=== PATIENT | female | born 1965 | race American Indian/Alaskan Native ===

== ENCOUNTER 2018-06-15 12:28 | Outpatient (CLI) | payer MEDICAID | END 2018-06-15 12:29 | disposition home or self-care (01) | LOC: C.MRIC 12:28 ==

== ENCOUNTER 2018-06-16 13:12 | Inpatient (IN) | payer MEDICAID ==
[2018-06-16 13:12] VITALS: BMI 29.7
[2018-06-16] MEDS ORDERED: Vancomycin 1 GM 1 GM/250 ML BAG IV STA (13:45)
[2018-06-16] MEDS ORDERED: Piperacillin/Tazobact 3.375 gm 100 ML IV STA (13:45)
--- NOTE | 2018-06-16 13:56 | C.PDOC ---
History Of Present Illness 31 year old female presents to ED with complaint of painful ulcer between the 4th and 5th toes of her left foot for a year, that has recently worsened. She has PMHX of DM, depression. Her superintendent production is Dr. Haylie Crews, she was seen by him this morning and sent to ED. Osteomyelitis is suspected. Patient has not had a CTA done or arterial droopler done yet. (+) history of smoking, smokes 1 pack per day. Patient states that movement worsens the pain. She denies pain radiating up the ankle, sensory changes, fever, extremity weakness, rashes. Time Seen by Provider: 06/16/18 13:23 Chief Complaint (Nursing): Lower Extremity Problem/Injury History Per: Patient History/Exam Limitations: no limitations Onset/Duration Of Symptoms: Days Current Symptoms Are (Timing): Still Present Additional History Per: Patient Past Medical History Reviewed: Historical Data, Nursing Documentation, Vital Signs Vital Signs: Last Vital Signs Temp 98.5 F 06/16/18 13:17 Pulse 107 H 06/16/18 13:17 Resp 18 06/16/18 13:17 BP 155/84 H 06/16/18 13:17 Pulse Ox 95 06/16/18 13:17 - Medical History PMH: Depression, Diabetes Surgical History: No Surg Hx Family History: States: Diabetes - Social History Hx Tobacco Use: Yes Hx Alcohol Use: No Hx Substance Use: No - Immunization History Hx Tetanus Toxoid Vaccination: No Hx Influenza Vaccination: Yes Hx Pneumococcal Vaccination: No Review Of Systems Constitutional: Negative for: Fever, Chills, Weakness Cardiovascular: Negative for: Chest Pain, Palpitations Respiratory: Negative for: Cough, Shortness of Breath Gastrointestinal: Negative for: Nausea, Vomiting, Abdominal Pain, Diarrhea Musculoskeletal: Positive for: Foot Pain (Ulcer between the 4th and 5th digits of the left foot) Skin: Positive for: Other (Ulcer on the left foot) Neurological: Negative for: Weakness, Numbness, Dizziness Physical Exam - Physical Exam Appears: Well, Non-toxic, No Acute Distress Skin: Normal Color, Warm, Dry Head: Normacephalic Oral Mucosa: Moist Neck: Supple Cardiovascular: Rhythm Regular Respiratory: Normal Breath Sounds, No Rales, No Rhonchi, No Wheezing Gastrointestinal/Abdominal: Normal Exam, Bowel Sounds, Soft, No Tenderness Extremity: Capillary Refill (< 2 sec all digits ), Other (deep appearing ulcer between the 4th and 5th digits of the left foot; (+) skin breakdown on the left foot) Extremity: Right: Atraumatic, Normal Color And Temperature Pulses: Left Dorsalis Pedis: Normal, Right Dorsalis Pedis: Normal Neurological/Psych: Oriented x3 Gait: Steady ED Course And Treatment - Laboratory Results Result Diagrams: 06/23/18 07:15 06/23/18 07:15 O2 Sat by Pulse Oximetry: 95 (RA) Pulse Ox Interpretation: Normal Progress Note: Blood work, UA ordered and reviewed. Patient given IV Vancomycin, IV Zosyn and PO Percocet. . 14:03- called [facility] and spoke with Nurse Rachelle to confirm methadone dose for patient. Phone number [phone]. No call back yet. - Physician Consult Information Physician Contacted: Obie Shi Outcome Of Conversation: Discussed patient with PMD, agrees with admission for osteomyelitis of left foot. Disposition - Disposition Disposition: HOSPITALIZED Disposition Time: 15:13 Condition: STABLE - Clinical Impression Clinical Impression: Osteomyelitis of left foot - Scribe Statement The provider has reviewed the documentation as recorded by the Scribe (Maite Gagnon) All medical record entries made by the Scribe were at my direction and personally dictated by me. I have reviewed the chart and agree that the record accurately reflects my personal performance of the history, physical exam, medical decision making, and the department course for this patient. I have also personally directed, reviewed, and agree with the discharge instructions and disposition. Decision To Admit - Pt Status Changed To: Hospital Disposition Of: Inpatient - Admit Certification Admit to Inpatient:: After my assessment, the patient will require hospitalization for at least two midnights. This is because of the severity of symptoms shown, intensity of services needed, and/or the medical risk in this patient being treated as an outpatient. - InPatient: Physician Admission Certification: I certify that this patient requires 2 or more midnights of care for the following reason:: see notes - . Bed Request Type: Regular Admitting Physician: Obie Shi Patient Diagnosis: Osteomyelitis of left foot
[2018-06-16 13:59] LABS: VENOUS BLOOD GAS BASE EXCESS 2.3 mmol/L (0.0-2.0); VENOUS BLOOD GAS PCO2 56 mmHg (40-60); VENOUS BLOOD GAS PO2 16 mm/Hg (30-55); VENOUS BLOOD PH 7.33 (7.32-7.43)
[2018-06-16] MEDS ORDERED: Oxycodone/Acetaminophen 5/325 mg Tab PO STA (14:01)
[2018-06-16 14:04] LABS: BASO # 0.1 K/uL (0.0-0.2); BASO % 1.1 % (0.0-2.0); EOS # 0.1 K/uL (0.0-0.7); EOS % 0.9 % (0.0-4.0); HEMOGLOBIN 13.2 g/dL (11.0-16.0); LYMPH # 3.5 K/uL (1.0-4.3); LYMPH % 35.2 % (20.0-40.0); MEAN CELL VOLUME 93.3 fL (81.0-99.0); MEAN CORPUSCULAR HEMOGLOBIN 31.7 pg (27.0-31.0); MONO # 0.5 K/uL (0.0-0.8); MONO % 5.2 % (0.0-10.0); NEUT # 5.7 K/uL (1.8-7.0); NEUT % 57.6 % (50.0-75.0); RBC 4.16 Mil/uL (3.80-5.20); RED CELL DISTRIBUTION WIDTH 13.1 % (11.5-14.5); WHITE BLOOD COUNT 9.8 K/uL (4.8-10.8)
--- NOTE | 2018-06-16 14:04 | C.PDOC ---
Time Seen by Provider: 06/16/18 13:23 Chief Complaint (Nursing): Lower Extremity Problem/Injury Past Medical History Vital Signs: Last Vital Signs Temp 98.5 F 06/16/18 13:17 Pulse 107 H 06/16/18 13:17 Resp 18 06/16/18 13:17 BP 155/84 H 06/16/18 13:17 Pulse Ox 95 06/16/18 13:17 - Medical History PMH: Depression - Social History Hx Tobacco Use: Yes Hx Alcohol Use: No Hx Substance Use: No - Immunization History Hx Tetanus Toxoid Vaccination: No Hx Influenza Vaccination: Yes Hx Pneumococcal Vaccination: No ED Course And Treatment O2 Sat by Pulse Oximetry: 95 Disposition - Disposition
[2018-06-16] MEDS ORDERED: Piperacillin/Tazobact 3.375 gm 100 ML IVPB ONE (14:05)
[2018-06-16] MEDS ORDERED: Oxycodone/Acetaminophen 5/325 mg Tab ONE (14:06)
--- NOTE | 2018-06-16 14:14 | CP.PCM.CON ---
History of Present Illness - History of Present Illness History of Present Illness: Podiatry consult note for attending Dr. Crews: 52 y/o F patient with PMH of DM, Depression and on Methadone program seen and evaluated in the ED for left foot infected ulcer in the 4th interspace with underlying OM. Patient states that it started 1 year ago as maceration between the 4th and 5th toes of the left foot. She states that she went to 2 doctors saught medical advice but the lesion persisted and progressed to an ulceration. Patient stats that the ulcer is painful, 6/10 on VAS scale. She states that the ulcer is not draining. She states that she went to Dr. Crews who ordered her MRI and the MRI shows infection to the bone so he sent her to the hospital to receive IV antibiotics. Patient denies any tingling, Numbness or burning sensations to her feet Patient denies any other pedal complaint. he denies any recent f/N/V/C/CP or SOB. PMH: DM, Depression and on Methadone program. PSH: Tubal ligation Allergies: NKDA Social Hx: Smoker for 40 years 25 cigarettes/day, denies EtOH use or Used drug in the past and now on methadone program. Review of Systems - Review of Systems Review of Systems: As per HPI - Constitutional Constitutional: As Per HPI Past Patient History - Past Social History Smoking Status: Heavy Smoker > 10 Cigarettes Daily - ENDOCRINE/METABOLIC Hx Endocrine Disorders: Yes Hx Diabetes Mellitus Type 2: Yes - PSYCHIATRIC Hx Depression: Yes Hx Substance Use: No - SURGICAL HISTORY Hx Surgeries: Yes Hx Tubal Ligation: Yes - ANESTHESIA Hx Anesthesia: Yes Hx Anesthesia Reactions: No Hx Malignant Hyperthermia: No Meds Allergies/Adverse Reactions: Allergies Allergy/AdvReac Type Severity Reaction Status Date / Time No Known Allergies Allergy Verified 06/16/18 13:21 - Medications Medications: Current Medications Vancomycin HCl (Vancomycin 1gm In Normal Saline Addvantage) 1 gm in 250 mls @ 166.667 mls/hr IV STAT STA; Protocol Stop: 06/16/18 15:14 Mupirocin (Bactroban Ointment) 1 gm TOP DAILY [facility] Physical Exam - Constitutional Appears: Well, Non-toxic, No Acute Distress - Head Exam Head Exam: ATRAUMATIC, NORMOCEPHALIC - Extremities Exam Additional comments: L LE focused exam: Vasc: DP/PT 1/4, Cap refill < 3 sec to all digits, Temp gradient warm to cool from proximal to distal. No edema noted. Neuro: Gross sensation intact and protective sensations diminished. Derm: An open linear ulcer at the 4th interspace measures 2cm X 0.6cm X 0.5cm. No malodor, no drainage, Macerated borders, Positive probe to bone, positive undermining. MSK: Muscle power intact 5/5 to all groups. Pain on palpating the l 4th interspace ulcer. - Neurological Exam Neurological exam: Alert, Oriented x3 - Psychiatric Exam Psychiatric exam: Normal Affect, Normal Mood Results - Vital Signs Recent Vital Signs: Last Vital Signs Temp 98.5 F 06/16/18 13:17 Pulse 107 H 06/16/18 13:17 Resp 18 06/16/18 13:17 BP 155/84 H 06/16/18 13:17 Pulse Ox 95 06/16/18 14:13 - Labs Result Diagrams: 06/16/18 13:58 06/16/18 13:58 Labs: Laboratory Results - last 24 hr 06/16/18 06/16/18 13:55 13:58 WBC 9.8 RBC 4.16 Hgb 13.2 Hct 38.8 MCV 93.3 MCH 31.7 H MCHC 34.0 RDW 13.1 Plt Count 282 MPV 9.0 Neut % (Auto) 57.6 Lymph % (Auto) 35.2 Citrus % (Auto) 5.2 Eos % (Auto) 0.9 Baso % (Auto) 1.1 Neut # (Auto) 5.7 Lymph # (Auto) 3.5 Citrus # (Auto) 0.5 Eos # (Auto) 0.1 Baso # (Auto) 0.1 pO2 16 L VBG pH 7.33 VBG pCO2 56 VBG HCO3 24.6 VBG Total CO2 31.2 H VBG O2 Sat (Calc) 50.3 VBG Base Excess 2.3 H VBG Potassium 4.2 Sodium 139.0 Chloride 105.0 Glucose 126 H Lactate 1.4 Venous Blood Potassium 4.2 Assessment & Plan - Assessment and Plan (Free Text) Assessment: 52 y/o F patient seen and evaluated in the ED for left foot infected ulcer in the 4th interspace with underlying OM. Plan: Patient seen and evaluated in the ED. plan discussed with Dr. Crews. Charts and vitals reviewed; Afebrile, no leukocytosis Ordered x-ray left foot. Ordered vascular consult. Ordered Arterial duplex. ordered infectious disease consult. Ordered ESR, CRP. Patient received asstat dose of VAnc, Zosyn in the ED. Wound dressed using betadine, DSD. Ordered bactroban ointment to be added to the dressing starting tomorrow.\ MRI done 06/15/2018; Findings consistent with OM L 4th proximal phalanx Patient expressed verbal understanding. Podiatry will follow up the patient while in the hospital Thank you for the consult. - Date & Time Date: 06/16/18 Time: 14:14
[2018-06-16 14:20] LABS: ALB/GLOB RATIO 1.5 (1.0-2.1); ALBUMIN 4.8 g/dL (3.5-5.0); ALT/SGPT 7 U/L (9-52); AST/SGOT 23 U/L (14-36); BLOOD UREA NITROGEN 11 mg/dL (7-17); CALCIUM 9.8 mg/dl (8.6-10.4); GFR NON-AFRICAN AMERICAN > 60
--- NOTE | 2018-06-16 14:42 | CP.PCM.CON ---
History of Present Illness - History of Present Illness History of Present Illness: Surgery consult note for Dr. Galaviz. 52 F w/ PMhx of diabetes, hyperlipidemia, depression, presents to ED following request by her podiatry. Patient has had a on/off left foot ulcer for the past year for which she has seen several podiatrists. Most recently, she a podiatry & had a MRI revealing osteomyelitis. Patient referred to ED for further management. Patient denies headaches, vision changes, nausea vomiting, abdominal pain, chest pain, SOB, dysuria, hematuria. PMD: Depression, diabetes, hyperlipidemia Meds: See EMR PSH: Tubal ligation Allergies: NKDA SHx: 80+ smoking pack history, currently in a methadone program for the past 5 years, does not drink Review of Systems - Review of Systems All systems: reviewed and no additional remarkable complaints except - Constitutional Constitutional: As Per HPI Past Patient History - Past Social History Smoking Status: Heavy Smoker > 10 Cigarettes Daily - ENDOCRINE/METABOLIC Hx Endocrine Disorders: Yes Hx Diabetes Mellitus Type 2: Yes - PSYCHIATRIC Hx Depression: Yes Hx Substance Use: No - SURGICAL HISTORY Hx Surgeries: Yes Hx Tubal Ligation: Yes - ANESTHESIA Hx Anesthesia: Yes Hx Anesthesia Reactions: No Hx Malignant Hyperthermia: No Meds Allergies/Adverse Reactions: Allergies Allergy/AdvReac Type Severity Reaction Status Date / Time No Known Allergies Allergy Verified 06/16/18 13:21 - Medications Medications: Current Medications Vancomycin HCl (Vancomycin 1gm In Normal Saline Addvantage) 1 gm in 250 mls @ 166.667 mls/hr IV STAT STA; Protocol Stop: 06/16/18 15:14 Mupirocin (Bactroban Ointment) 1 gm TOP DAILY [facility] Physical Exam - Constitutional Appears: Non-toxic, No Acute Distress - Head Exam Head Exam: NORMAL INSPECTION - Eye Exam Eye Exam: Normal appearance - ENT Exam ENT Exam: Mucous Membranes Moist - Respiratory Exam Respiratory Exam: NORMAL BREATHING PATTERN - Extremities Exam Additional comments: DP pulses intact posterior tibal pulses intact b/l 2cm X 0.5 cm ulcer in between 4th and 5th digit of LLE No drainage Sensation intact Cap refill < 3 - Neurological Exam Neurological exam: Alert, Oriented x3 - Psychiatric Exam Psychiatric exam: Normal Affect, Normal Mood - Skin Skin Exam: Dry, Intact Results - Vital Signs Recent Vital Signs: Last Vital Signs Temp 98.5 F 06/16/18 13:17 Pulse 107 H 06/16/18 13:17 Resp 18 06/16/18 13:17 BP 155/84 H 06/16/18 13:17 Pulse Ox 95 06/16/18 14:17 - Labs Result Diagrams: 06/16/18 13:58 06/16/18 13:58 Labs: Laboratory Results - last 24 hr 06/16/18 06/16/18 06/16/18 13:55 13:58 13:58 WBC 9.8 RBC 4.16 Hgb 13.2 Hct 38.8 MCV 93.3 MCH 31.7 H MCHC 34.0 RDW 13.1 Plt Count 282 MPV 9.0 Neut % (Auto) 57.6 Lymph % (Auto) 35.2 Garrard % (Auto) 5.2 Eos % (Auto) 0.9 Baso % (Auto) 1.1 Neut # (Auto) 5.7 Lymph # (Auto) 3.5 Garrard # (Auto) 0.5 Eos # (Auto) 0.1 Baso # (Auto) 0.1 pO2 16 L VBG pH 7.33 VBG pCO2 56 VBG HCO3 24.6 VBG Total CO2 31.2 H VBG O2 Sat (Calc) 50.3 VBG Base Excess 2.3 H VBG Potassium 4.2 Sodium 139.0 137 Chloride 105.0 101 Glucose 126 H Lactate 1.4 Potassium 4.3 Carbon Dioxide 29 Anion Gap 11 BUN 11 Creatinine 0.8 Est GFR ( Amer) > 60 Est GFR (Non-Af Amer) > 60 Random Glucose 127 H Calcium 9.8 Total Bilirubin 0.3 AST 23 ALT 7 L Alkaline Phosphatase 84 Total Protein 7.9 Albumin 4.8 Globulin 3.1 Albumin/Globulin Ratio 1.5 Venous Blood Potassium 4.2 Assessment & Plan - Assessment and Plan (Free Text) Assessment: 52 y f w/ left foot ulcer, consulted for vascular patency of foot Plan: TATA/ PVR ordered Will f/u results Dheeraj Crews, PGY1
[2018-06-16] MEDS ORDERED: Vancomycin 1 GM 1 GM/250 ML BAG IVPB ONE (15:10)
[2018-06-16 18:06] LABS: BARBITURATES, UR NEGATIVE (NEGATIVE); OPIATES, UR NEGATIVE (NEGATIVE); PHENCYCLIDINE, UR NEGATIVE (NEGATIVE)
[2018-06-16 18:18] LABS: BENZODIAZEPINES, UR POSITIVE (NEGATIVE)
--- NOTE | 2018-06-16 18:57 | RAD ---
PROCEDURE: Left Foot Radiographs. HISTORY: Left foot infected ulcer with underlying OM COMPARISON: None available. FINDINGS: BONES: No acute displaced fracture. JOINTS: No dislocation. SOFT TISSUES: Soft tissue swelling. No evidence of radiopaque foreign body. OTHER FINDINGS: None. IMPRESSION: Soft tissue swelling. No discrete osseous erosive changes appreciated. Please note that MRI is most sensitive in the detection of acute osteomyelitis and refer to MRI performed 06/15/18 for detailed findings.
[2018-06-16] MEDS: Piperacillin/Tazobact 3.375 GM in Sodium Chloride 100 ML IVPB SCH (21:24)
[2018-06-16] MEDS: (Novolog) Insulin Aspart, Recombinant 100 u/ml 10 ml vial SC SCH (21:45)
[2018-06-17] MEDS: Vancomycin 1 gm/NS 200 ml 1 GM/200 ML BAG IVPB SCH ×2 (00:03→11:36)
[2018-06-17] MEDS: Piperacillin/Tazobact 3.375 GM in Sodium Chloride 100 ML IVPB SCH ×4 (01:58→20:57)
[2018-06-17] MEDS: (Novolog) Insulin Aspart, Recombinant 100 u/ml 10 ml vial SC SCH ×4 (08:46→21:49)
[2018-06-17] MEDS: Methadone 40 mg Tab PO SCH (10:29)
[2018-06-17] MEDS: Enoxaparin 40 mg Syringe SC SCH (10:31)
[2018-06-17] MEDS: Oxycodone/Acetaminophen 5/325 mg Tab PO PRN ×2 (11:35→17:58)
[2018-06-17 11:45] LABS: BASO # 0.1 K/uL (0.0-0.2); BASO % 0.8 % (0.0-2.0); EOS # 0.1 K/uL (0.0-0.7); EOS % 1.3 % (0.0-4.0); HEMOGLOBIN 12.4 g/dL (11.0-16.0); LYMPH % 35.9 % (20.0-40.0); MEAN CELL VOLUME 92.3 fL (81.0-99.0); MEAN CORPUSCULAR HEMOGLOBIN 31.2 pg (27.0-31.0); MEAN CORPUSCULAR HGB CONC 33.9 g/dL (33.0-37.0); MEAN PLATELET VOLUME 9.3 fL (7.2-11.7); MONO # 0.5 K/uL (0.0-0.8); MONO % 4.8 % (0.0-10.0); NEUT # 6.4 K/uL (1.8-7.0); NEUT % 57.2 % (50.0-75.0); RBC 3.97 Mil/uL (3.80-5.20); WHITE BLOOD COUNT 11.2 K/uL (4.8-10.8)
[2018-06-17 12:08] LABS: ALB/GLOB RATIO 1.4 (1.0-2.1); ALBUMIN 3.9 g/dL (3.5-5.0); ALT/SGPT 10 U/L (9-52); AST/SGOT 17 U/L (14-36); BLOOD UREA NITROGEN 12 mg/dL (7-17); CALCIUM 9.2 mg/dl (8.6-10.4); GFR NON-AFRICAN AMERICAN > 60
--- NOTE | 2018-06-17 12:19 | CP.PCM.PN ---
Subjective - Date & Time of Evaluation Date of Evaluation: 06/17/18 Time of Evaluation: 07:00 - Subjective Subjective: PGY2- Progress Note for Dr. Shi Patient is a 52 y/o F with PMHx of DMII, HLD, and depression who presents for ulcer of left foot. Patient has had this ulcer for about 1 year and has been following up with Dr. Crews. Patient recently had an MRI done which showed osteomyelitis and so she was sent to the ER for further testing. Today patient is seen and examined at bedside and in no acute distress. Patient says her left foot is causing her 8/10 pain. Patient has no other complaints. Patient denies any headache, chest pain, abdominal pain, nausea, vomiting, constipation, or diarrhea. PMH: DMII, HLD, Depression and on Methadone program. PSH: Tubal ligation Allergies: NKDA Social Hx: Smoker for 40 years 25 cigarettes/day, denies EtOH use, on methadone program for 5 years Objective - Vital Signs/Intake and Output Vital Signs (last 24 hours): Temp Pulse Resp BP Pulse Ox 98.4 F 93 H 20 121/79 95 06/17/18 08:38 06/17/18 08:38 06/17/18 08:38 06/17/18 08:38 06/17/18 08:38 Intake and Output: 06/17/18 06/17/18 06:59 18:59 Intake Total 500 Balance 500 - Medications Medications: Current Medications Buspirone HCl (Buspar) 10 mg PO TID [facility] Last Admin: 06/17/18 10:30 Dose: 10 mg Enoxaparin Sodium (Lovenox) 40 mg SC DAILY [facility] Last Admin: 06/17/18 10:31 Dose: 40 mg Gemfibrozil (Lopid) 600 mg PO DAILY [facility] Last Admin: 06/17/18 10:30 Dose: 600 mg Hydroxyzine HCl (Atarax) 25 mg PO BID [facility] Last Admin: 06/17/18 10:30 Dose: 25 mg Vancomycin/Sodium Chloride (Vancomycin 1 Gm/Ns 200 Ml) 1 gm in 200 mls @ 133.333 mls/hr IVPB Q12H [facility]; Protocol Stop: 06/22/18 00:01 Last Admin: 06/17/18 11:36 Dose: 133.333 mls/hr Piperacillin Sod/Tazobactam (Sod 3.375 gm/ Sodium Chloride) 100 mls @ 200 mls/hr IVPB Q6H [facility]; Protocol Last Admin: 06/17/18 09:01 Dose: 200 mls/hr Insulin Aspart (Novolog) 0 unit SC ACHS [facility]; Protocol Last Admin: 06/17/18 08:46 Dose: 2 unit Metformin HCl (Glucophage) 1,000 mg PO BID [facility] Last Admin: 06/17/18 10:30 Dose: 1,000 mg Methadone HCl (Methadose) 120 mg PO DAILY [facility] Last Admin: 06/17/18 10:29 Dose: 120 mg Methadone HCl (Methadone) 10 mg PO DAILY [facility] Last Admin: 06/17/18 10:30 Dose: 10 mg Mupirocin (Bactroban Ointment) 1 gm TOP DAILY [facility] Last Admin: 06/17/18 11:34 Dose: 1 applic Oxycodone/Acetaminophen (Percocet 5/325 Mg Tab) 1 tab PO Q6H PRN PRN Reason: Pain, severe (8-10) Stop: 06/19/18 18:16 Last Admin: 06/17/18 11:35 Dose: 1 tab Pneumococcal Polyvalent Vaccine (Pneumovax 23 Vaccine) 0.5 ml IM .ONCE ONE Stop: 06/18/18 10:01 Quetiapine Fumarate (Seroquel) 300 mg PO BID [facility] Last Admin: 06/17/18 10:30 Dose: 300 mg Rosuvastatin Calcium (Crestor) 20 mg PO [facility] Last Admin: 06/16/18 21:31 Dose: 20 mg Sertraline HCl (Zoloft) 100 mg PO [facility] Last Admin: 06/16/18 21:24 Dose: 100 mg - Labs Labs: 06/17/18 11:35 06/16/18 13:58 - Constitutional Appears: Non-toxic, No Acute Distress - Head Exam Head Exam: ATRAUMATIC, NORMAL INSPECTION, NORMOCEPHALIC - Eye Exam Eye Exam: EOMI, Normal appearance - ENT Exam ENT Exam: Mucous Membranes Moist - Respiratory Exam Respiratory Exam: Clear to Ausculation Bilateral, NORMAL BREATHING PATTERN. absent: Rales, Rhonchi, Wheezes, Respiratory Distress, Stridor - Cardiovascular Exam Cardiovascular Exam: REGULAR RHYTHM, RRR, +S1, +S2 - GI/Abdominal Exam GI & Abdominal Exam: Soft, Normal Bowel Sounds. absent: Tenderness - Extremities Exam Additional comments: left foot wrapped in c/d/i dressing - Neurological Exam Neurological Exam: Alert, Awake, Oriented x3 - Psychiatric Exam Psychiatric exam: Normal Affect, Normal Mood - Skin Skin Exam: Normal Color, Warm Additional comments: left foot wrapped in c/d/i dressing Assessment and Plan - Assessment and Plan (Free Text) Assessment: Osteomyelitis Left 4th Proximal Phalanx Podiatry consulted, help appreciated Vascular surgery consulted, help appreciated ID, Dr. Moreno consulted, help appreciated Left foot xray: soft tissue swelling, no discrete osseous erosive changes appreciated. PVR/ SEG LE: no evidence of hemodynamically significant arterial insufficiency f/u blood culture, wound culture ESR: 56; CRP 24.50 meds: percocet 1 tab po q6h Zosyn 3.375gm ivpb q6h Vanco 1gm q12h Mupirocin 2% DMII Gemfibrozil 600mg po daily Metformin 1000mg po BID Levemir 50 u sc HS Levemir 20 u sc ACB ISS- medium achs f/u HgA1C HLD Rosuvastatin 20mg po HS f/u lipid panel Anxiety/ Depression Buspar 10mg po TID Atarax 25mg po BID Seroquel 300mg po BID Zoloft 100mg po HS Hx Heroin Abuse Methadone 130mg po daily Prophylaxis Lovenox 40mg sc daily Patient seen and discussed with Dr. Shi
--- NOTE | 2018-06-17 12:42 | CP.PCM.PN ---
Subjective - Date & Time of Evaluation Date of Evaluation: 06/17/18 Time of Evaluation: 12:39 - Subjective Subjective: Podiatry Progress note: Dr. Crews 52 year old female was seen and evaluated for left foot infected ulcer in the 4th interspace with underlying OM. Patient is AAOx3 and appears in NAD. Denies of any acute pain. Denies of recent F/N/V/C/SOB/CP/headache. No other pedal complains at this time. Objective - Vital Signs/Intake and Output Vital Signs (last 24 hours): Temp Pulse Resp BP Pulse Ox 98.4 F 93 H 20 121/79 95 06/17/18 08:38 06/17/18 08:38 06/17/18 08:38 06/17/18 08:38 06/17/18 08:38 Intake and Output: 06/17/18 06/17/18 06:59 18:59 Intake Total 500 Balance 500 - Medications Medications: Current Medications Buspirone HCl (Buspar) 10 mg PO TID [facility] Last Admin: 06/17/18 10:30 Dose: 10 mg Enoxaparin Sodium (Lovenox) 40 mg SC DAILY [facility] Last Admin: 06/17/18 10:31 Dose: 40 mg Gemfibrozil (Lopid) 600 mg PO DAILY [facility] Last Admin: 06/17/18 10:30 Dose: 600 mg Hydroxyzine HCl (Atarax) 25 mg PO BID [facility] Last Admin: 06/17/18 10:30 Dose: 25 mg Vancomycin/Sodium Chloride (Vancomycin 1 Gm/Ns 200 Ml) 1 gm in 200 mls @ 133.333 mls/hr IVPB Q12H [facility]; Protocol Stop: 06/22/18 00:01 Last Admin: 06/17/18 11:36 Dose: 133.333 mls/hr Piperacillin Sod/Tazobactam (Sod 3.375 gm/ Sodium Chloride) 100 mls @ 200 mls/hr IVPB Q6H [facility]; Protocol Last Admin: 06/17/18 09:01 Dose: 200 mls/hr Insulin Aspart (Novolog) 0 unit SC ACHS [facility]; Protocol Last Admin: 06/17/18 12:22 Dose: 2 unit Metformin HCl (Glucophage) 1,000 mg PO BID [facility] Last Admin: 06/17/18 10:30 Dose: 1,000 mg Methadone HCl (Methadose) 120 mg PO DAILY [facility] Last Admin: 06/17/18 10:29 Dose: 120 mg Methadone HCl (Methadone) 10 mg PO DAILY [facility] Last Admin: 06/17/18 10:30 Dose: 10 mg Mupirocin (Bactroban Ointment) 1 gm TOP DAILY [facility] Last Admin: 06/17/18 11:34 Dose: 1 applic Oxycodone/Acetaminophen (Percocet 5/325 Mg Tab) 1 tab PO Q6H PRN PRN Reason: Pain, severe (8-10) Stop: 06/19/18 18:16 Last Admin: 06/17/18 11:35 Dose: 1 tab Pneumococcal Polyvalent Vaccine (Pneumovax 23 Vaccine) 0.5 ml IM .ONCE ONE Stop: 06/18/18 10:01 Quetiapine Fumarate (Seroquel) 300 mg PO BID [facility] Last Admin: 06/17/18 10:30 Dose: 300 mg Rosuvastatin Calcium (Crestor) 20 mg PO [facility] Last Admin: 06/16/18 21:31 Dose: 20 mg Sertraline HCl (Zoloft) 100 mg PO [facility] Last Admin: 06/16/18 21:24 Dose: 100 mg - Labs Labs: 06/17/18 11:35 06/17/18 11:35 - Constitutional Appears: Well, Non-toxic, No Acute Distress - Extremities Exam Additional comments: L LE focused exam: Vasc: DP/PT 1/4, Cap refill < 3 sec to all digits, Temp gradient warm to cool from proximal to distal. No pitting or non-pitting edema noted. Neuro: Gross sensation intact and protective sensations diminished. Derm: An open linear ulcer at the 4th interspace measures 2cm X 0.6cm X 0.5cm. No malodor, no drainage, Macerated borders, Positive probe to bone, positive undermining, no periwound erythema MSK: Muscle power intact 5/5 to all groups. Pain on palpating the 4th interspace ulcer. - Neurological Exam Neurological Exam: Alert, Awake, Oriented x3 - Psychiatric Exam Psychiatric exam: Normal Affect, Normal Mood Assessment and Plan - Assessment and Plan (Free Text) Assessment: 52 y/o F evaluated for left foot infected ulcer in the 4th interspace with underlying OM Plan: Patient seen and evaluated Plan discussed with Dr. Crews. Charts and vitals reviewed; Afebrile, WBC @ 11.2 ESR: 56; CRP 24.50 X-ray left foot: No signs of soft tissue emphysema, no signs of acute OM MRI performed 06/15/2018; Findings consistent with OM L 4th proximal phalanx Vascular consult - recs appreciated TATA/PVR: final report pending Continue IV abx as per JIHAN - VancViolet Wound dressed using betadine, DSD. 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
--- NOTE | 2018-06-17 13:23 | CP.PCM.PN ---
Subjective - Date & Time of Evaluation Date of Evaluation: 06/17/18 Time of Evaluation: 07:00 - Subjective Subjective: Vascular Surgery: Dr. Galaviz Pt seen and examined. No acute events overnight. States she has some pain in her left foot but otherwise denies complaints. Denies fevers/chills. Objective - Vital Signs/Intake and Output Vital Signs (last 24 hours): Temp Pulse Resp BP Pulse Ox 98.4 F 93 H 20 121/79 95 06/17/18 08:38 06/17/18 08:38 06/17/18 08:38 06/17/18 08:38 06/17/18 08:38 Intake and Output: 06/17/18 06/17/18 06:59 18:59 Intake Total 500 Balance 500 - Medications Medications: Current Medications Buspirone HCl (Buspar) 10 mg PO TID [facility] Last Admin: 06/17/18 10:30 Dose: 10 mg Enoxaparin Sodium (Lovenox) 40 mg SC DAILY [facility] Last Admin: 06/17/18 10:31 Dose: 40 mg Gemfibrozil (Lopid) 600 mg PO DAILY [facility] Last Admin: 06/17/18 10:30 Dose: 600 mg Hydroxyzine HCl (Atarax) 25 mg PO BID [facility] Last Admin: 06/17/18 10:30 Dose: 25 mg Vancomycin/Sodium Chloride (Vancomycin 1 Gm/Ns 200 Ml) 1 gm in 200 mls @ 133.333 mls/hr IVPB Q12H [facility]; Protocol Stop: 06/22/18 00:01 Last Admin: 06/17/18 11:36 Dose: 133.333 mls/hr Piperacillin Sod/Tazobactam (Sod 3.375 gm/ Sodium Chloride) 100 mls @ 200 mls/hr IVPB Q6H [facility]; Protocol Last Admin: 06/17/18 09:01 Dose: 200 mls/hr Insulin Aspart (Novolog) 0 unit SC ACHS [facility]; Protocol Last Admin: 06/17/18 12:22 Dose: 2 unit Metformin HCl (Glucophage) 1,000 mg PO BID [facility] Last Admin: 06/17/18 10:30 Dose: 1,000 mg Methadone HCl (Methadose) 120 mg PO DAILY [facility] Last Admin: 06/17/18 10:29 Dose: 120 mg Methadone HCl (Methadone) 10 mg PO DAILY [facility] Last Admin: 06/17/18 10:30 Dose: 10 mg Mupirocin (Bactroban Ointment) 1 gm TOP DAILY [facility] Last Admin: 06/17/18 11:34 Dose: 1 applic Oxycodone/Acetaminophen (Percocet 5/325 Mg Tab) 1 tab PO Q6H PRN PRN Reason: Pain, severe (8-10) Stop: 06/19/18 18:16 Last Admin: 06/17/18 11:35 Dose: 1 tab Pneumococcal Polyvalent Vaccine (Pneumovax 23 Vaccine) 0.5 ml IM .ONCE ONE Stop: 06/18/18 10:01 Quetiapine Fumarate (Seroquel) 300 mg PO BID [facility] Last Admin: 06/17/18 10:30 Dose: 300 mg Rosuvastatin Calcium (Crestor) 20 mg PO [facility] Last Admin: 06/16/18 21:31 Dose: 20 mg Sertraline HCl (Zoloft) 100 mg PO [facility] Last Admin: 06/16/18 21:24 Dose: 100 mg - Labs Labs: 06/17/18 11:35 06/17/18 11:35 - Constitutional Appears: Well, No Acute Distress - Head Exam Head Exam: ATRAUMATIC, NORMOCEPHALIC - Eye Exam Eye Exam: Normal appearance - ENT Exam ENT Exam: Mucous Membranes Moist - Respiratory Exam Respiratory Exam: NORMAL BREATHING PATTERN - Cardiovascular Exam Cardiovascular Exam: RRR - GI/Abdominal Exam GI & Abdominal Exam: Soft - Extremities Exam Additional comments: b/l LE with palpable DP/PT, dressing on Left foot C/D/I - Neurological Exam Neurological Exam: Alert, Awake, Oriented x3 - Skin Skin Exam: Dry, Warm Assessment and Plan - Assessment and Plan (Free Text) Assessment: 52F with infected lesion between 4th-5th toe interspace & underlying osteomyelitis Plan: - TATA/PVRs unremarkable, will follow official report - no plan for vascular surgery intervention at this time - ABX per ID recs - wound care per podiatry - d/w Dr. Guillaume Antoine
--- NOTE | 2018-06-17 14:40 | VASCLAB ---
Date of service: 06/16/2018 STUDY DESCRIPTION: Lower Extremity Arterial Exam (PVR). HISTORY: non-healing foot ulcer PRIORS: None. TECHNIQUE: Pulse volume recording waveforms and segmental pressures of bilateral lower extremities at multiple levels were obtained. Ankle Brachial Indices (ABIs) were calculated. Report prepared by DIANA Arevalo, RVT RIGHT LOWER EXTREMITY: * Brachial artery: Pressure - 133 mmHg. * High thigh: Pressure - 174 mmHg: Ratio - 1.31: PVR waveform - Pulsatile * Low thigh: Pressure - 198 mmHg: Ratio - 1.49 PVR waveform: Pulsatile * Calf: Pressure - 154 mmHg: Ratio - 1.16 PVR waveform: Pulsatile * Posterior tibial Artery: Pressure - 154 mmHg: Ratio - 1.16 PVR waveform: Pulsatile * Dorsalis pedis Artery: Pressure - 161 mmHg: Ratio - 1.21 PVR waveform: Pulsatile * Great toe: Pressure - 89 mmHg: Ratio - 0.67 PVR waveform: Pulsatile Ankle brachial index (TATA): 1.21 LEFT LOWER EXTREMITY: * Brachial artery: Pressure - 132 mmHg. * High thigh: Pressure - 184 mmHg: Ratio - 1.38: PVR waveform - Pulsatile * Low thigh: Pressure - 181 mmHg: Ratio - 1.36 PVR waveform: Pulsatile * Calf: Pressure - 159 mmHg: Ratio - 1.20 PVR waveform: Pulsatile * Posterior tibial Artery: Pressure - 158 mmHg: Ratio - 1.19 PVR waveform: Pulsatile * Dorsalis pedis Artery: Pressure - 162 mmHg: Ratio - 1.22 PVR waveform: Pulsatile * Great toe: Pressure - 112 mmHg: Ratio - 0.84 PVR waveform: Pulsatile Ankle brachial index (TATA): 1.22 OTHER FINDINGS: Right: Left: IMPRESSION: Right: There was no evidence of hemodynamically significant arterial insufficiency in the right lower extremity. Left: There was no evidence of hemodynamically significant arterial insufficiency in the left lower extremity.
[2018-06-17] MEDS ORDERED: (Novolin R) Insulin Human Regular 100 units/ml vial SC SCH (16:30)
--- NOTE | 2018-06-17 19:24 | CP.PCM.CON ---
History of Present Illness - History of Present Illness History of Present Illness: 52 y/o F patient with left foot infected ulcer in the 4th interspace with underlying OM. . She states that she went to Dr. Crews who ordered her MRI and the MRI shows infection to the bone so he sent her to the hospital to receive IV antibiotics. ID consulted for this May not be a candidate for Home IV rx will likely need 6-8 weeks IVRX await cultures PMH: DM, Depression and on Methadone program. PSH: Tubal ligation Allergies: NKDA Social Hx: Smoker for 40 years 25 cigarettes/day, denies EtOH use or Used drug in the past and now on methadone program. Review of Systems - Review of Systems All systems: reviewed and no additional remarkable complaints except - Constitutional Constitutional: As Per HPI - EENT Eyes: absent: As Per HPI, Blind Spots, Blurred Vision, Change in Vision, Decreased Night Vision, Diplopia, Discharge, Dry Eye, Exophthalmos, Floaters, Irritation, Itchy Eyes, Loss of Peripheral Vision, Pain, Photophobia, Requires Corrective Lenses, Sees Flashes, Spots in Vision, Tunnel Vision, Other Visual Disturbances, Loss of Vision, Other Ears: absent: As Per HPI, Decreased Hearing, Ear Discharge, Ear Pain, Tinnitus, Abnormal Hearing, Disequilibrium, Dizziness, Other Nose/Mouth/Throat: absent: As Per HPI, Epistaxis, Nasal Congestion, Nasal Discharge, Nasal Obstruction, Nasal Trauma, Nose Pain, Post Nasal Drip, Sinus Pain, Sinus Pressure, Bleeding Gums, Change in Voice, Dental Pain, Dry Mouth, Dysphagia, Halitosis, Hoarsness, Lip Swelling, Mouth Lesions, Mouth Pain, Odynophagia, Sore Throat, Throat Swelling, Tongue Swelling, Facial Pain, Neck Pain, Neck Mass, Other - Breasts Breasts: absent: As Per HPI, Change in Shape, Mass, Pain, Nipple Discharge, Nipple Inversion, Skin Changes, Swelling, Other - Cardiovascular Cardiovascular: absent: As Per HPI, Acrocyanosis, Chest Pain, Chest Pain at Rest, Chest Pain with Activity, Claudication, Diaphoresis, Dyspnea, Dyspnea on Exertion, Edema, Irregular Heart Rhythm, Pain Radiating to Arm/Neck/Jaw, Leg Edema, Leg Ulcers, Lightheadedness, Orthopnea, Palpitations, Paroxysmal Noctur nal Dyspnea, Pedal Edema, Radiating Pain, Rapid Heart Rate, Slow Heart Rate, Syncope, Other - Respiratory Respiratory: absent: As Per HPI, Cough, Dyspnea, Hemoptysis, Dyspnea on Exertion, Wheezing, Snoring, Stridor, Pain on Inspiration, Chest Congestion, Excessive Mucous Production, Change in Mucous Color, Pain with Coughing, Other - Gastrointestinal Gastrointestinal: absent: As Per HPI, Abdominal Pain, Belching, Bloating, Change in Bowel Habits, Change in Stool Character, Coffee Ground Emesis, Constipation, Cramping, Diarrhea, Dyspepsia, Dysphagia, Early Satiety, Excessive Flatus, Fecal Incontinence, Heartburn, Hematemesis, Hematochezia, Loose Stools, Melena, Nausea, Odynophagia, Temesmus, Vomiting, Other - Genitourinary Genitourinary: absent: As Per HPI, Change in Urinary Stream, Difficulty Urinating, Dysuria, Flank Pain, Hematuria, Pyuria, Nocturia, Urinary Incontinen ce, Urinary Frequency, Urinary Hesitance, Urinary Urgency, Voiding Freq/Small Amts, Freq UTI, Hx Renal/Bladder Calculi, Hx /Renal Surgery, Bladder Distension, Other - Reproductive: Female Reproductive:Female: absent: As Per HPI, Amenorrhea, Amenorrhea/ Control, Currently Menstual, Cycle <21 Days, Cycle >35 Days, Cycle Variable, Menses 1-7 Days, Menses >/= 8 Days, Menses Variable, Cycle > 4 Weeks Between, No Menses for 6 Months, Heavy Menses, Light Menses, Normal Menses, Spotting Between Cycles, S/P Hysterectomy, Menopausal, Post Menopausal, Premenarche, Abnormal Vaginal Bleeding, Dysmenorrhea, Dyspareunia, Genital Lesions, Genital Pruritis, Pelvic Pain, Prolapse Symptoms, Sexual Dysfunction, Vaginal Discharge, Vaginal Dryness, Vaginal Odor, Vaginal Pruritis, Other - Menstruation Menstruation: absent: As Per HPI, Amenorrhea, Amenorrhea/ Control, Currently Menstual, Cycle <21 Days, Cycle >35 Days, Cycle Variable, Menses 1-7 Days, Menses >/= 8 Days, Menses Variable, Cycle > 4 Weeks Between, No Menses for 6 Months, Heavy Menses, Light Menses, Normal Menses, Spotting Between Cycles, S/P Hysterectomy, Menopausal, Post Menopausal, Premenarche, Abnormal Vaginal Bleeding, Dysmenorrhea, Other - Musculoskeletal Musculoskeletal: As Per HPI - Integumentary Integumentary: As Per HPI, Skin Pain, Wounds - Neurological Neurological: absent: As Per HPI, Abnormal Gait, Abnormal Hearing, Abnormal Movements, Abnormal Speech, Behavioral Changes, Burning Sensations, Confusion, Convulsions, Disequilibrium, Dizziness, Numbness, Focal Weakness, Frequent Falls, Headaches, Lack of Coordination, Loss of Vision, Memory Loss, Paresthesias, Radicular Pain, Restless Legs, Sensory Deficit, Syncope, Tingling, Tremor, Vertigo, Weakness, Other Visual Disturbances, Other - Psychiatric Psychiatric: absent: As Per HPI, Abnormal Sleep Pattern, Anhedonia, Anxiety, Auditory Hallucinations, Behavioral Changes, Change in Appetite, Change in Libido, Confusion, Depression, Difficulty Concentrating, Hallucinations, Homicidal Ideation, Hopelessness, Irritability, Memory Loss, Mood Swings, Panic Attacks, Paranoia, Suicidal Ideation, Visual Hallucinations, Tactile Morton llucinations, Other - Endocrine Endocrine: absent: As Per HPI, Change in Body Appearance, Change in Libido, Cold Intolorance, Deepening of Voice, Excessive Sweating, Fatigue, Flushing, Heat Intolorance, Increase in Ring/Shoe/Hat Size, Palpitations, Polydipsia, Polyphagia, Polyuria, Other - Hematologic/Lymphatic Hematologic: absent: As Per HPI, Easy Bleeding, Easy Bruising, Lymphadenopathy, Other Past Patient History - Past Medical History & Family History Past Medical History?: Yes - Past Social History Smoking Status: Heavy Smoker > 10 Cigarettes Daily - ENDOCRINE/METABOLIC Hx Endocrine Disorders: Yes Hx Diabetes Mellitus Type 2: Yes - MUSCULOSKELETAL/RHEUMATOLOGICAL Hx Falls: No - PSYCHIATRIC Hx Substance Use: Yes - SURGICAL HISTORY Hx Surgeries: Yes Hx Tubal Ligation: Yes - ANESTHESIA Hx Anesthesia: Yes Hx Anesthesia Reactions: No Hx Malignant Hyperthermia: No Meds Allergies/Adverse Reactions: Allergies Allergy/AdvReac Type Severity Reaction Status Date / Time No Known Allergies Allergy Verified 06/16/18 13:21 - Medications Medications: Current Medications Buspirone HCl (Buspar) 10 mg PO TID [facility] Last Admin: 06/17/18 17:35 Dose: 10 mg Enoxaparin Sodium (Lovenox) 40 mg SC DAILY [facility] Last Admin: 06/17/18 10:31 Dose: 40 mg Gemfibrozil (Lopid) 600 mg PO DAILY [facility] Last Admin: 06/17/18 10:30 Dose: 600 mg Hydroxyzine HCl (Atarax) 25 mg PO BID [facility] Last Admin: 06/17/18 17:34 Dose: 25 mg Vancomycin/Sodium Chloride (Vancomycin 1 Gm/Ns 200 Ml) 1 gm in 200 mls @ 133.333 mls/hr IVPB Q12H [facility]; Protocol Stop: 06/22/18 00:01 Last Admin: 06/17/18 11:36 Dose: 133.333 mls/hr Piperacillin Sod/Tazobactam (Sod 3.375 gm/ Sodium Chloride) 100 mls @ 200 mls/hr IVPB Q6H [facility]; Protocol Last Admin: 06/17/18 14:49 Dose: 200 mls/hr Insulin Aspart (Novolog) 0 unit SC [facility]; Protocol Last Admin: 06/17/18 17:35 Dose: 2 unit Insulin Detemir (Levemir) 50 unit SC [facility] Insulin Detemir (Levemir) 20 unit SC ACB [facility] Metformin HCl (Glucophage) 1,000 mg PO BID [facility] Last Admin: 06/17/18 17:34 Dose: 1,000 mg Methadone HCl (Methadose) 120 mg PO DAILY [facility] Last Admin: 06/17/18 10:29 Dose: 120 mg Methadone HCl (Methadone) 10 mg PO DAILY [facility] Last Admin: 06/17/18 10:30 Dose: 10 mg Mupirocin (Bactroban Ointment) 1 gm TOP DAILY [facility] Last Admin: 06/17/18 11:34 Dose: 1 applic Oxycodone/Acetaminophen (Percocet 5/325 Mg Tab) 1 tab PO Q6H PRN PRN Reason: Pain, severe (8-10) Stop: 06/19/18 18:16 Last Admin: 06/17/18 17:58 Dose: 1 tab Pneumococcal Polyvalent Vaccine (Pneumovax 23 Vaccine) 0.5 ml IM .ONCE ONE Stop: 06/18/18 10:01 Quetiapine Fumarate (Seroquel) 300 mg PO BID [facility] Last Admin: 06/17/18 17:34 Dose: 300 mg Rosuvastatin Calcium (Crestor) 20 mg PO [facility] Last Admin: 06/16/18 21:31 Dose: 20 mg Sertraline HCl (Zoloft) 100 mg PO [facility] Last Admin: 06/16/18 21:24 Dose: 100 mg Physical Exam - Constitutional Appears: Non-toxic, Chronically Ill - Head Exam Head Exam: NORMOCEPHALIC - Eye Exam Eye Exam: absent: Scleral icterus - ENT Exam ENT Exam: Mucous Membranes Dry - Neck Exam Neck exam: Negative for: Lymphadenopathy - Respiratory Exam Respiratory Exam: Decreased Breath Sounds, Rhonchi - Cardiovascular Exam Cardiovascular Exam: REGULAR RHYTHM, +S1, +S2 - GI/Abdominal Exam GI & Abdominal Exam: Diminished Bowel Sounds, Soft. absent: Tenderness - Rectal Exam Rectal Exam: Deferred - Exam Exam: NORMAL INSPECTION - Extremities Exam Extremities exam: Positive for: pedal edema, tenderness, pedal pulses present. Negative for: calf tenderness Additional comments: + interspace infection left foot no latasha pus - Back Exam Back exam: absent: CVA tenderness (L), CVA tenderness (R) - Neurological Exam Neurological exam: Alert, CN II-XII Intact, Oriented x3, Reflexes Normal - Psychiatric Exam Psychiatric exam: Depressed - Skin Skin Exam: Dry Results - Vital Signs Recent Vital Signs: Last Vital Signs Temp 98.5 F 06/17/18 15:00 Pulse 104 H 06/17/18 15:00 Resp 20 06/17/18 15:00 BP 118/75 06/17/18 15:00 Pulse Ox 95 06/17/18 15:00 - Labs Result Diagrams: 06/18/18 07:19 06/18/18 07:19 Labs: Laboratory Results - last 24 hr 06/16/18 06/17/18 06/17/18 21:05 07:19 11:34 WBC RBC Hgb Hct MCV MCH MCHC RDW Plt Count MPV Neut % (Auto) Lymph % (Auto) [place] % (Auto) Eos % (Auto) Baso % (Auto) Neut # (Auto) Lymph # (Auto) [place] # (Auto) Eos # (Auto) Baso # (Auto) Sodium Potassium Chloride Carbon Dioxide Anion Gap BUN Creatinine Est GFR ( Amer) Est GFR (Non-Af Amer) POC Glucose (mg/dL) 137 H 157 H 188 H Random Glucose Calcium Phosphorus Magnesium Total Bilirubin AST ALT Alkaline Phosphatase Total Protein Albumin Globulin Albumin/Globulin Ratio 06/17/18 06/17/18 06/17/18 11:35 11:35 16:26 WBC 11.2 H RBC 3.97 Hgb 12.4 Hct 36.6 MCV 92.3 MCH 31.2 H MCHC 33.9 RDW 13.0 Plt Count 281 MPV 9.3 Neut % (Auto) 57.2 Lymph % (Auto) 35.9 [place] % (Auto) 4.8 Eos % (Auto) 1.3 Baso % (Auto) 0.8 Neut # (Auto) 6.4 Lymph # (Auto) 4.0 [place] # (Auto) 0.5 Eos # (Auto) 0.1 Baso # (Auto) 0.1 Sodium 138 Potassium 4.2 Chloride 103 Carbon Dioxide 26 Anion Gap 13 BUN 12 Creatinine 0.8 Est GFR ( Amer) > 60 Est GFR (Non-Af Amer) > 60 POC Glucose (mg/dL) 162 H Random Glucose 193 H D Calcium 9.2 Phosphorus 3.6 Magnesium 1.8 Total Bilirubin 0.4 AST 17 ALT 10 Alkaline Phosphatase 81 Total Protein 6.7 Albumin 3.9 Globulin 2.8 Albumin/Globulin Ratio 1.4 Assessment & Plan - Assessment and Plan (Free Text) Assessment: OM of foot interdigital ulcer DM cont iv rx consider vascular eval IV antibiotics and wound care podiatry for debridement
[2018-06-17] MEDS: Insulin Detemir 100 units/ml Vial (Levemir) SC SCH (21:57)
[2018-06-17] MEDS ORDERED: (Lantus) Insulin Glargine, Recombinant SC SCH (22:00)
[2018-06-17] MEDS ORDERED: Insulin Detemir 100 units/ml Vial (Levemir) SC SCH (22:00)
[2018-06-18] MEDS: Vancomycin 1 gm/NS 200 ml 1 GM/200 ML BAG IVPB SCH ×2 (00:06→13:35)
[2018-06-18] MEDS: Piperacillin/Tazobact 3.375 GM in Sodium Chloride 100 ML IVPB SCH ×4 (01:42→19:50)
[2018-06-18 07:30] LABS: BASO # 0.1 K/uL (0.0-0.2); BASO % 0.6 % (0.0-2.0); EOS # 0.1 K/uL (0.0-0.7); EOS % 0.8 % (0.0-4.0); LYMPH # 3.1 K/uL (1.0-4.3); LYMPH % 18.6 % (20.0-40.0); MEAN CELL VOLUME 92.7 fL (81.0-99.0); MEAN CORPUSCULAR HEMOGLOBIN 31.4 pg (27.0-31.0); MEAN CORPUSCULAR HGB CONC 33.9 g/dL (33.0-37.0); MEAN PLATELET VOLUME 8.9 fL (7.2-11.7); MONO # 0.8 K/uL (0.0-0.8); MONO % 5.1 % (0.0-10.0); NEUT # 12.5 K/uL (1.8-7.0); NEUT % 74.9 % (50.0-75.0); RBC 3.81 Mil/uL (3.80-5.20); RED CELL DISTRIBUTION WIDTH 12.9 % (11.5-14.5); WHITE BLOOD COUNT 16.7 K/uL (4.8-10.8)
[2018-06-18 07:53] LABS: ALB/GLOB RATIO 1.4 (1.0-2.1); ALBUMIN 3.8 g/dL (3.5-5.0); ALT/SGPT 13 U/L (9-52); AST/SGOT 21 U/L (14-36); BLOOD UREA NITROGEN 10 mg/dL (7-17); CALCIUM 9.1 mg/dl (8.6-10.4); GFR NON-AFRICAN AMERICAN > 60; HDL CHOLESTEROL 32 mg/dL (30-70)
[2018-06-18] MEDS: Insulin Detemir 100 units/ml Vial (Levemir) SC SCH ×2 (08:00→21:32)
[2018-06-18 08:05] LABS: LDL CHOLESTEROL 95 mg/dL (0-129)
[2018-06-18 08:11] LABS: HEPATITIS B SURFACE AG Negative (NEGATIVE)
[2018-06-18 08:16] LABS: HEPATITIS A IGM NEGATIVE (NEGATIVE); HEPATITIS B CORE AB NEGATIVE (NEGATIVE)
[2018-06-18 08:28] LABS: HEPATITIS C ANTIBODY NEGATIVE (NEGATIVE)
[2018-06-18] MEDS: (Novolog) Insulin Aspart, Recombinant 100 u/ml 10 ml vial SC SCH ×4 (09:19→21:32)
[2018-06-18] MEDS: Enoxaparin 40 mg Syringe SC SCH (09:19)
[2018-06-18] MEDS: Oxycodone/Acetaminophen 5/325 mg Tab PO PRN ×2 (09:21→15:26)
[2018-06-18] MEDS ORDERED: Pneumococcal 23-Valent Vaccine IM ONE (10:00)
[2018-06-18] MEDS: Methadone 40 mg Tab PO SCH (10:41)
--- NOTE | 2018-06-18 11:09 | CP.PCM.PN ---
Subjective - Date & Time of Evaluation Date of Evaluation: 06/18/18 Time of Evaluation: 07:00 - Subjective Subjective: PGY2- Progress Note for Dr. Shi Patient seen and examined at bedside and in no acute distress. Patient says her left foot pain is a little better today and rates it 7/10. Patient has no other complaints. Patient denies any headache, chest pain, shortness of breath, abdominal pain, nausea, vomiting, constipation, or diarrhea. Objective - Vital Signs/Intake and Output Vital Signs (last 24 hours): Temp Pulse Resp BP Pulse Ox 99.5 F 86 20 124/76 94 L 06/18/18 08:29 06/18/18 08:29 06/18/18 08:29 06/18/18 08:29 06/18/18 08:29 Intake and Output: 06/18/18 06/18/18 06:59 18:59 Intake Total 900 Balance 900 - Medications Medications: Current Medications Buspirone HCl (Buspar) 10 mg PO TID [facility] Last Admin: 06/18/18 09:16 Dose: 10 mg Enoxaparin Sodium (Lovenox) 40 mg SC DAILY [facility] Last Admin: 06/18/18 09:19 Dose: 40 mg Gemfibrozil (Lopid) 600 mg PO DAILY [facility] Last Admin: 06/18/18 09:18 Dose: 600 mg Hydroxyzine HCl (Atarax) 25 mg PO BID [facility] Last Admin: 06/18/18 09:18 Dose: 25 mg Vancomycin/Sodium Chloride (Vancomycin 1 Gm/Ns 200 Ml) 1 gm in 200 mls @ 133.333 mls/hr IVPB Q12H [facility]; Protocol Stop: 06/22/18 00:01 Last Admin: 06/18/18 00:06 Dose: 133.333 mls/hr Piperacillin Sod/Tazobactam (Sod 3.375 gm/ Sodium Chloride) 100 mls @ 200 mls/h r IVPB Q6H [facility]; Protocol Last Admin: 06/18/18 09:24 Dose: 200 mls/hr Insulin Aspart (Novolog) 0 unit SC ACHS [facility]; Protocol Last Admin: 06/18/18 09:19 Dose: Not Given Insulin Detemir (Levemir) 20 unit SC ACB [facility] Insulin Detemir (Levemir) 40 unit SC HS [facility] Last Admin: 06/17/18 21:57 Dose: 40 units Metformin HCl (Glucophage) 1,000 mg PO BID [facility] Last Admin: 06/18/18 09:27 Dose: 1,000 mg Methadone HCl (Methadose) 120 mg PO DAILY [facility] Last Admin: 06/18/18 10:41 Dose: 120 mg Methadone HCl (Methadone) 10 mg PO DAILY [facility] Last Admin: 06/18/18 10:42 Dose: 10 mg Mupirocin (Bactroban Ointment) 1 gm TOP DAILY [facility] Last Admin: 06/18/18 10:56 Dose: Not Given Oxycodone/Acetaminophen (Percocet 5/325 Mg Tab) 1 tab PO Q6H PRN PRN Reason: Pain, severe (8-10) Stop: 06/19/18 18:16 Last Admin: 06/18/18 09:21 Dose: 1 tab Quetiapine Fumarate (Seroquel) 300 mg PO BID [facility] Last Admin: 06/18/18 09:19 Dose: 300 mg Rosuvastatin Calcium (Crestor) 20 mg PO [facility] Last Admin: 06/17/18 21:56 Dose: 20 mg Sertraline HCl (Zoloft) 100 mg PO [facility] Last Admin: 06/17/18 21:56 Dose: 100 mg - Labs Labs: 06/18/18 07:19 06/18/18 07:19 - Additional Findings Additional findings: - Constitutional Appears: Non-toxic, No Acute Distress - Head Exam Head Exam: ATRAUMATIC, NORMAL INSPECTION, NORMOCEPHALIC - Eye Exam Eye Exam: EOMI, Normal appearance - ENT Exam ENT Exam: Mucous Membranes Moist - Respiratory Exam Respiratory Exam: Clear to Ausculation Bilateral, NORMAL BREATHING PATTERN. absent: Rales, Rhonchi, Wheezes, Respiratory Distress, Stridor - Cardiovascular Exam Cardiovascular Exam: REGULAR RHYTHM, RRR, +S1, +S2 - GI/Abdominal Exam GI & Abdominal Exam: Soft, Normal Bowel Sounds. absent: Tenderness - Extremities Exam Additional comments: left foot wrapped in c/d/i dressing - Neurological Exam Neurological Exam: Alert, Awake, Oriented x3 - Psychiatric Exam Psychiatric exam: Normal Affect, Normal Mood - Skin Skin Exam: Normal Color, Warm Additional comments: left foot wrapped in c/d/i dressing Assessment and Plan - Assessment and Plan (Free Text) Assessment: Osteomyelitis Left 4th Proximal Phalanx Podiatry consulted, help appreciated Vascular surgery consulted, help appreciated- no intervention at this time ID, Dr. Moreno consulted, help appreciated Left foot xray: soft tissue swelling, no discrete osseous erosive changes appreciated. PVR/ SEG LE: no evidence of hemodynamically significant arterial insufficiency blood culture: no growth after 24 hours wound culture: coag neg staph ESR: 56; CRP 24.50 picc line to be placed meds: Percocet 1 tab po q6h Zosyn 3.375gm ivpb q6h Vanco 1gm q12h Mupirocin 2% DMII Gemfibrozil 600mg po daily Metformin 1000mg po BID Levemir 40 u sc HS Levemir 20 u sc ACB ISS- medium achs HgA1C: 7.2 HLD Rosuvastatin 20mg po HS triglycerides: 208, cholesterol 158, LDL 95, HDL 32 Anxiety/ Depression Buspar 10mg po TID Atarax 25mg po BID Seroquel 300mg po BID Zoloft 100mg po HS Hx Heroin Abuse Methadone 130mg po daily Prophylaxis Lovenox 40mg sc daily Patient seen and discussed with Dr. Shi Dispo: patient to get PICC line placed then YINKA vs home infusions
--- NOTE | 2018-06-18 11:59 | CP.PCM.PN ---
Subjective - Date & Time of Evaluation Date of Evaluation: 06/18/18 Time of Evaluation: 11:55 - Subjective Subjective: Podiatry Progress note: Dr. Crews 52 year old female was seen and evaluated for left foot infected ulcer in the 4th interspace with underlying OM. Patient is AAOx3 and appears in NAD. Denies of any acute pain. Reports that she saw Dr. Moreno yesterday and states that she would like to go with long term care pharmacist IV abx as for now. Denies of recent F/N/V/C/SOB/CP/headache. No other pedal complains at this time. Objective - Vital Signs/Intake and Output Vital Signs (last 24 hours): Temp Pulse Resp BP Pulse Ox 99.5 F 86 20 124/76 94 L 06/18/18 08:29 06/18/18 08:29 06/18/18 08:29 06/18/18 08:29 06/18/18 08:29 Intake and Output: 06/18/18 06/18/18 06:59 18:59 Intake Total 900 Balance 900 - Medications Medications: Current Medications Buspirone HCl (Buspar) 10 mg PO TID [facility] Last Admin: 06/18/18 09:16 Dose: 10 mg Enoxaparin Sodium (Lovenox) 40 mg SC DAILY [facility] Last Admin: 06/18/18 09:19 Dose: 40 mg Gemfibrozil (Lopid) 600 mg PO DAILY [facility] Last Admin: 06/18/18 09:18 Dose: 600 mg Hydroxyzine HCl (Atarax) 25 mg PO BID [facility] Last Admin: 06/18/18 09:18 Dose: 25 mg Vancomycin/Sodium Chloride (Vancomycin 1 Gm/Ns 200 Ml) 1 gm in 200 mls @ 133.333 mls/hr IVPB Q12H [facility]; Protocol Stop: 06/22/18 00:01 Last Admin: 06/18/18 00:06 Dose: 133.333 mls/hr Piperacillin Sod/Tazobactam (Sod 3.375 gm/ Sodium Chloride) 100 mls @ 200 mls/hr IVPB Q6H [facility]; Protocol Last Admin: 06/18/18 09:24 Dose: 200 mls/hr Insulin Aspart (Novolog) 0 unit SC ACHS [facility]; Protocol Last Admin: 06/18/18 09:19 Dose: Not Given Insulin Detemir (Levemir) 20 unit SC B [facility] Insulin Detemir (Levemir) 40 unit SC [facility] Last Admin: 06/17/18 21:57 Dose: 40 units Metformin HCl (Glucophage) 1,000 mg PO BID [facility] Last Admin: 06/18/18 09:27 Dose: 1,000 mg Methadone HCl (Methadose) 120 mg PO DAILY [facility] Last Admin: 06/18/18 10:41 Dose: 120 mg Methadone HCl (Methadone) 10 mg PO DAILY [facility] Last Admin: 06/18/18 10:42 Dose: 10 mg Mupirocin (Bactroban Ointment) 1 gm TOP DAILY [facility] Last Admin: 06/18/18 10:56 Dose: Not Given Oxycodone/Acetaminophen (Percocet 5/325 Mg Tab) 1 tab PO Q6H PRN PRN Reason: Pain, severe (8-10) Stop: 06/19/18 18:16 Last Admin: 06/18/18 09:21 Dose: 1 tab Quetiapine Fumarate (Seroquel) 300 mg PO BID [facility] Last Admin: 06/18/18 09:19 Dose: 300 mg Rosuvastatin Calcium (Crestor) 20 mg PO [facility] Last Admin: 06/17/18 21:56 Dose: 20 mg Sertraline HCl (Zoloft) 100 mg PO [facility] Last Admin: 06/17/18 21:56 Dose: 100 mg - Labs Labs: 06/18/18 07:19 06/18/18 07:19 - Constitutional Appears: Well, Non-toxic, No Acute Distress - Extremities Exam Additional comments: L LE focused exam: Vasc: DP/PT 1/4, Cap refill < 3 sec to all digits, Temp gradient warm to cool f rom proximal to distal. No pitting or non-pitting edema noted. Neuro: Gross sensation intact and protective sensations diminished. Derm: An open linear ulcer at the 4th interspace measures 2cm X 0.6cm X 0.5cm. No malodor, no drainage, Macerated borders, Positive probe to bone, positive undermining, no periwound erythema MSK: Muscle power intact 5/5 to all groups. Pain on palpating the 4th interspace ulcer. - Neurological Exam Neurological Exam: Alert, Awake, Oriented x3 - Psychiatric Exam Psychiatric exam: Normal Affect, Normal Mood Assessment and Plan - Assessment and Plan (Free Text) Assessment: 52 y/o F evaluated for left foot infected ulcer in the 4th interspace with underlying OM Plan: Patient seen and evaluated Plan discussed with Dr. Crews. Charts and vitals reviewed; Afebrile, WBC @ 16.7 ESR: 56; CRP 24.50 X-ray left foot: No signs of soft tissue emphysema, no signs of acute OM MRI performed 06/15/2018; Findings consistent with OM L 4th proximal phalanx Vascular consult - recs appreciated TATA/PVR: final report pending Wound cx: Coag negative staph Continue IV abx as per JIHAN - Violet Arita Wound dressed using Bactroban, DSD. Patient is refusing any form of surgical intervention at this time - Patient will need need halfway abx; patient may need a PICC line No plan for surgical intervention at this time Podiatry will follow patient while in-house
[2018-06-18] MEDS ORDERED: Midazolam 2 MG/2 ML VIAL ONE (12:21)
[2018-06-18] MEDS ORDERED: Lidocaine 2% MPF (5 ml) Inj ONE (12:43)
--- NOTE | 2018-06-18 13:25 | PCM.SURG1 ---
Surgeon's Initial Post Op Note - Surgeon's Notes Surgeon: [employer] Associate: None Type of Anesthesia: Local Pre-Operative Diagnosis: Infection of the toe Operative Findings: Patent right brachial vein Post-Operative Diagnosis: infected toe Operation Performed: right brachial vein 4F SL 37cm PICC placed with the tip in the prox RA Specimen/Specimens Removed: None Estimated Blood Loss: EBL {In ML}: 1 Date of Surgery/Procedure: 06/18/18 Time of Surgery/Procedure: 13:20
--- NOTE | 2018-06-18 19:37 | CP.PCM.PN ---
Subjective - Date & Time of Evaluation Date of Evaluation: 06/18/18 Time of Evaluation: 09:00 - Subjective Subjective: events noted may need YINKA Objective - Vital Signs/Intake and Output Vital Signs (last 24 hours): Temp Pulse Resp BP Pulse Ox 98.7 F 108 H 20 109/69 94 L 06/18/18 15:00 06/18/18 15:00 06/18/18 15:00 06/18/18 15:00 06/18/18 15:00 - Medications Medications: Current Medications Buspirone HCl (Buspar) 10 mg PO TID [facility] Last Admin: 06/18/18 18:35 Dose: 10 mg Enoxaparin Sodium (Lovenox) 40 mg SC DAILY [facility] Last Admin: 06/18/18 09:19 Dose: 40 mg Gemfibrozil (Lopid) 600 mg PO DAILY [facility] Last Admin: 06/18/18 09:18 Dose: 600 mg Hydroxyzine HCl (Atarax) 25 mg PO BID [facility] Last Admin: 06/18/18 18:36 Dose: 25 mg Vancomycin/Sodium Chloride (Vancomycin 1 Gm/Ns 200 Ml) 1 gm in 200 mls @ 133.333 mls/hr IVPB Q12H [facility]; Protocol Stop: 06/22/18 00:01 Last Admin: 06/18/18 13:35 Dose: 133.333 mls/hr Piperacillin Sod/Tazobactam (Sod 3.375 gm/ Sodium Chloride) 100 mls @ 200 mls/hr IVPB Q6H [facility]; Protocol Last Admin: 06/18/18 15:00 Dose: 200 mls/hr Insulin Aspart (Novolog) 0 unit SC ACHS [facility]; Protocol Last Admin: 06/18/18 18:36 Dose: 3 unit Insulin Detemir (Levemir) 20 unit SC ACB [facility] Last Admin: 06/18/18 08:00 Dose: 20 units Insulin Detemir (Levemir) 40 unit SC HS [facility] Last Admin: 06/17/18 21:57 Dose: 40 units Metformin HCl (Glucophage) 1,000 mg PO BID [facility] Last Admin: 06/18/18 18:35 Dose: 1,000 mg Methadone HCl (Methadose) 120 mg PO DAILY [facility] Last Admin: 06/18/18 10:41 Dose: 120 mg Methadone HCl (Methadone) 10 mg PO DAILY [facility] Last Admin: 06/18/18 10:42 Dose: 10 mg Mupirocin (Bactroban Ointment) 1 gm TOP DAILY [facility] Last Admin: 06/18/18 10:56 Dose: Not Given Oxycodone/Acetaminophen (Percocet 5/325 Mg Tab) 1 tab PO Q6H PRN PRN Reason: Pain, severe (8-10) Stop: 06/19/18 18:16 Last Admin: 06/18/18 15:26 Dose: 1 tab Quetiapine Fumarate (Seroquel) 300 mg PO BID [facility] Last Admin: 06/18/18 18:35 Dose: 300 mg Rosuvastatin Calcium (Crestor) 20 mg PO [facility] Last Admin: 06/17/18 21:56 Dose: 20 mg Sertraline HCl (Zoloft) 100 mg PO [facility] Last Admin: 06/17/18 21:56 Dose: 100 mg - Labs Labs: 06/18/18 07:19 06/18/18 07:19 - Constitutional Appears: Non-toxic, Chronically Ill - Head Exam Head Exam: NORMOCEPHALIC - Eye Exam Eye Exam: absent: Scleral icterus - ENT Exam ENT Exam: Mucous Membranes Dry - Neck Exam Neck Exam: absent: Lymphadenopathy - Respiratory Exam Respiratory Exam: Decreased Breath Sounds - Cardiovascular Exam Cardiovascular Exam: REGULAR RHYTHM - GI/Abdominal Exam GI & Abdominal Exam: Distended, Soft - Rectal Exam Rectal Exam: Deferred - Exam Exam: NORMAL INSPECTION - Extremities Exam Extremities Exam: Pedal Edema, Tenderness. absent: Normal Capillary Refill - Neurological Exam Neurological Exam: Alert, Awake Assessment and Plan - Assessment and Plan (Free Text) Assessment: OM of foot IV rx in progress cultures pending
[2018-06-19] MEDS: Vancomycin 1 gm/NS 200 ml 1 GM/200 ML BAG IVPB SCH ×2 (00:01→11:15)
[2018-06-19] MEDS: Piperacillin/Tazobact 3.375 GM in Sodium Chloride 100 ML IVPB SCH ×3 (01:59→20:33)
[2018-06-19 07:12] LABS: BASO # 0.1 K/uL (0.0-0.2); EOS # 0.2 K/uL (0.0-0.7); EOS % 1.9 % (0.0-4.0); HEMOGLOBIN 11.8 g/dL (11.0-16.0); LYMPH # 4.4 K/uL (1.0-4.3); LYMPH % 41.1 % (20.0-40.0); MEAN CORPUSCULAR HEMOGLOBIN 31.1 pg (27.0-31.0); MEAN CORPUSCULAR HGB CONC 33.5 g/dL (33.0-37.0); MEAN PLATELET VOLUME 8.7 fL (7.2-11.7); MONO # 0.7 K/uL (0.0-0.8); MONO % 6.2 % (0.0-10.0); NEUT # 5.3 K/uL (1.8-7.0); NEUT % 49.8 % (50.0-75.0); RBC 3.78 Mil/uL (3.80-5.20); RED CELL DISTRIBUTION WIDTH 12.7 % (11.5-14.5); WHITE BLOOD COUNT 10.7 K/uL (4.8-10.8)
[2018-06-19 07:44] LABS: ALB/GLOB RATIO 1.4 (1.0-2.1); ALBUMIN 3.5 g/dL (3.5-5.0); ALT/SGPT 12 U/L (9-52); AST/SGOT 19 U/L (14-36); BLOOD UREA NITROGEN 10 mg/dL (7-17); CALCIUM 8.8 mg/dl (8.6-10.4); GFR NON-AFRICAN AMERICAN > 60
[2018-06-19] MEDS: Insulin Detemir 100 units/ml Vial (Levemir) SC SCH ×2 (08:38→21:37)
[2018-06-19] MEDS: (Novolog) Insulin Aspart, Recombinant 100 u/ml 10 ml vial SC SCH ×4 (09:00→21:37)
--- NOTE | 2018-06-19 09:20 | CP.PCM.PN ---
Subjective - Date & Time of Evaluation Date of Evaluation: 06/19/18 Time of Evaluation: 09:17 - Subjective Subjective: PGY2 Medicine Note for Dr. Shi Patient seen and examined this morning at bedside. No acute events overnight. Patient is still experiencing some pain in her left foot, but her pain has been well controlled. She is feeling well overall and is currently pending discharge to [facility] for completion of her abx course. Denies fevers, chills, nausea, vomiting, diarrhea, constipation, chest pain, shortness of breath or abdominal pain. Objective - Vital Signs/Intake and Output Vital Signs (last 24 hours): Temp Pulse Resp BP Pulse Ox 98.4 F 96 H 20 121/81 97 06/19/18 08:26 06/19/18 08:26 06/19/18 08:26 06/19/18 08:26 06/19/18 08:26 Intake and Output: 06/19/18 06/19/18 06:59 18:59 Intake Total 550 Balance 550 - Medications Medications: Current Medications Buspirone HCl (Buspar) 10 mg PO TID [facility] Last Admin: 06/18/18 18:35 Dose: 10 mg Enoxaparin Sodium (Lovenox) 40 mg SC DAILY [facility] Last Admin: 06/18/18 09:19 Dose: 40 mg Gemfibrozil (Lopid) 600 mg PO DAILY [facility] Last Admin: 06/18/18 09:18 Dose: 600 mg Hydroxyzine HCl (Atarax) 25 mg PO BID [facility] Last Admin: 06/18/18 18:36 Dose: 25 mg Vancomycin/Sodium Chloride (Vancomycin 1 Gm/Ns 200 Ml) 1 gm in 200 mls @ 133.333 mls/hr IVPB Q12H [facility]; Protocol Stop: 06/22/18 00:01 Last Admin: 06/19/18 00:01 Dose: 133.333 mls/hr Piperacillin Sod/Tazobactam (Sod 3.375 gm/ Sodium Chloride) 100 mls @ 200 mls/hr IVPB Q6H [facility]; Protocol Last Admin: 06/19/18 08:57 Dose: 200 mls/hr Insulin Aspart (Novolog) 0 unit SC ACHS [facility]; Protocol Last Admin: 06/19/18 09:00 Dose: Not Given Insulin Detemir (Levemir) 20 unit SC ACB [facility] Last Admin: 06/19/18 08:38 Dose: 20 units Insulin Detemir (Levemir) 40 unit SC HS [facility] Last Admin: 06/18/18 21:32 Dose: Not Given Metformin HCl (Glucophage) 1,000 mg PO BID [facility] Last Admin: 06/18/18 18:35 Dose: 1,000 mg Methadone HCl (Methadose) 120 mg PO DAILY [facility] Last Admin: 06/18/18 10:41 Dose: 120 mg Methadone HCl (Methadone) 10 mg PO DAILY [facility] Last Admin: 06/18/18 10:42 Dose: 10 mg Mupirocin (Bactroban Ointment) 1 gm TOP DAILY [facility] Last Admin: 06/18/18 10:56 Dose: Not Given Oxycodone/Acetaminophen (Percocet 5/325 Mg Tab) 1 tab PO Q6H PRN PRN Reason: Pain, severe (8-10) Stop: 06/19/18 18:16 Last Admin: 06/18/18 15:26 Dose: 1 tab Quetiapine Fumarate (Seroquel) 300 mg PO BID [facility] Last Admin: 06/18/18 18:35 Dose: 300 mg Rosuvastatin Calcium (Crestor) 20 mg PO [facility] Last Admin: 06/18/18 21:59 Dose: 20 mg Sertraline HCl (Zoloft) 100 mg PO [facility] Last Admin: 06/18/18 21:59 Dose: 100 mg - Labs Labs: 06/19/18 07:00 06/19/18 07:00 - Constitutional Appears: Non-toxic, No Acute Distress - Head Exam Head Exam: ATRAUMATIC, NORMOCEPHALIC - Eye Exam Eye Exam: Normal appearance - ENT Exam ENT Exam: Mucous Membranes Moist - Respiratory Exam Respiratory Exam: Clear to Ausculation Bilateral, NORMAL BREATHING PATTERN. absent: Accessory Muscle Use, Rales, Rhonchi, Wheezes, Respiratory Distress - Cardiovascular Exam Cardiovascular Exam: REGULAR RHYTHM, +S1, +S2 - GI/Abdominal Exam GI & Abdominal Exam: Soft. absent: Distended, Firm, Guarding, Rigid, Tenderness - Extremities Exam Extremities Exam: absent: Calf Tenderness, Pedal Edema Additional comments: left foot - dressing in place, c/d/i - good sensation and movement of toes - Neurological Exam Neurological Exam: Alert, Awake, Oriented x3 - Psychiatric Exam Psychiatric exam: Normal Affect, Normal Mood - Skin Skin Exam: Dry, Warm Assessment and Plan - Assessment and Plan (Free Text) Plan: Osteomyelitis Left 4th Proximal Phalanx Podiatry consulted, help appreciated Vascular surgery consulted, help appreciated- no intervention at this time ID, Dr. Moreno consulted, help appreciated Left foot xray: soft tissue swelling, no discrete osseous erosive changes appreciated. PVR/ SEG LE: no evidence of hemodynamically significant arterial insufficiency blood culture: no growth after 24 hours wound culture: coag neg staph ESR: 56; CRP 24.50 picc line to be placed meds: Percocet 1 tab po q6h Zosyn 3.375gm ivpb q6h Vanco 1gm q12h Mupirocin 2% DMII Gemfibrozil 600mg po daily Metformin 1000mg po BID Levemir 40 u sc HS Levemir 20 u sc ACB ISS- medium achs HgA1C: 7.2 HLD Rosuvastatin 20mg po HS triglycerides: 208, cholesterol 158, LDL 95, HDL 32 Anxiety/ Depression Buspar 10mg po TID Atarax 25mg po BID Seroquel 300mg po BID Zoloft 100mg po HS Hx Heroin Abuse Methadone 130mg po daily Prophylaxis Lovenox 40mg sc daily Dispo: patient has PICC line in placed. She is medically stable for discharge to [facility] as she is not able to be discharged home with PICC due to history of drug abuse. Will discuss dc planning with RADHA. Patient seen and discussed with Dr. Jose Guadalupe Riccin PGY2
[2018-06-19] MEDS: Methadone 40 mg Tab PO SCH (09:55)
[2018-06-19] MEDS: Enoxaparin 40 mg Syringe SC SCH (09:55)
--- NOTE | 2018-06-19 12:43 | CP.PCM.PN ---
Subjective - Date & Time of Evaluation Date of Evaluation: 06/19/18 Time of Evaluation: 12:42 - Subjective Subjective: Pt seen at bedside for f/u left 4th interspace ulcer/osteo. Pt does not want any sx amputation. Pt wants fdc Iv abx and YINKA placement. Cont with local wound care for now. Objective - Vital Signs/Intake and Output Vital Signs (last 24 hours): Temp Pulse Resp BP Pulse Ox 98.4 F 96 H 20 121/81 97 06/19/18 08:26 06/19/18 08:26 06/19/18 08:26 06/19/18 08:26 06/19/18 08:26 Intake and Output: 06/19/18 06/19/18 06:59 18:59 Intake Total 550 Balance 550 - Medications Medications: Current Medications Buspirone HCl (Buspar) 10 mg PO TID [facility] Last Admin: 06/19/18 09:55 Dose: 10 mg Enoxaparin Sodium (Lovenox) 40 mg SC DAILY [facility] Last Admin: 06/19/18 09:55 Dose: 40 mg Gemfibrozil (Lopid) 600 mg PO DAILY [facility] Last Admin: 06/19/18 09:55 Dose: 600 mg Hydroxyzine HCl (Atarax) 25 mg PO BID [facility] Last Admin: 06/19/18 09:56 Dose: 25 mg Vancomycin/Sodium Chloride (Vancomycin 1 Gm/Ns 200 Ml) 1 gm in 200 mls @ 133.333 mls/hr IVPB Q12H [facility]; Protocol Stop: 06/22/18 00:01 Last Admin: 06/19/18 11:15 Dose: 133.333 mls/hr Piperacillin Sod/Tazobactam (Sod 3.375 gm/ Sodium Chloride) 100 mls @ 200 mls/hr IVPB Q6H [facility]; Protocol Last Admin: 06/19/18 08:57 Dose: 200 mls/hr Insulin Aspart (Novolog) 0 unit SC ACHS [facility]; Protocol Last Admin: 06/19/18 09:00 Dose: Not Given Insulin Detemir (Levemir) 20 unit SC ACB [facility] Last Admin: 06/19/18 08:38 Dose: 20 units Insulin Detemir (Levemir) 40 unit SC HS [facility] Last Admin: 06/18/18 21:32 Dose: Not Given Metformin HCl (Glucophage) 1,000 mg PO BID [facility] Last Admin: 06/19/18 09:56 Dose: 1,000 mg Methadone HCl (Methadose) 120 mg PO DAILY [facility] Last Admin: 06/19/18 09:55 Dose: 120 mg Methadone HCl (Methadone) 10 mg PO DAILY [facility] Last Admin: 06/19/18 09:55 Dose: 10 mg Mupirocin (Bactroban Ointment) 1 gm TOP DAILY [facility] Last Admin: 06/19/18 10:02 Dose: Not Given Quetiapine Fumarate (Seroquel) 300 mg PO BID [facility] Last Admin: 06/19/18 09:56 Dose: 300 mg Rosuvastatin Calcium (Crestor) 20 mg PO [facility] Last Admin: 06/18/18 21:59 Dose: 20 mg Sertraline HCl (Zoloft) 100 mg PO [facility] Last Admin: 06/18/18 21:59 Dose: 100 mg - Labs Labs: 06/19/18 07:00 06/19/18 07:00
--- NOTE | 2018-06-19 19:09 | CP.PCM.PN ---
Subjective - Date & Time of Evaluation Date of Evaluation: 06/19/18 Time of Evaluation: 08:00 - Subjective Subjective: refusing amp IV rx renewed Objective - Vital Signs/Intake and Output Vital Signs (last 24 hours): Temp Pulse Resp BP Pulse Ox 99.0 F 86 20 108/74 95 06/19/18 15:22 06/19/18 15:22 06/19/18 15:22 06/19/18 15:22 06/19/18 15:22 Intake and Output: 06/19/18 06/20/18 18:59 06:59 Intake Total 880 Balance 880 - Medications Medications: Current Medications Acetaminophen (Tylenol 325mg Tab) 650 mg PO Q6 PRN PRN Reason: Pain, moderate (4-7) Last Admin: 06/19/18 13:05 Dose: 650 mg Buspirone HCl (Buspar) 10 mg PO TID [facility] Last Admin: 06/19/18 17:11 Dose: 10 mg Enoxaparin Sodium (Lovenox) 40 mg SC DAILY [facility] Last Admin: 06/19/18 09:55 Dose: 40 mg Gemfibrozil (Lopid) 600 mg PO DAILY [facility] Last Admin: 06/19/18 09:55 Dose: 600 mg Hydroxyzine HCl (Atarax) 25 mg PO BID [facility] Last Admin: 06/19/18 17:11 Dose: 25 mg Vancomycin/Sodium Chloride (Vancomycin 1 Gm/Ns 200 Ml) 1 gm in 200 mls @ 133.333 mls/hr IVPB Q12H [facility]; Protocol Stop: 06/22/18 00:01 Last Admin: 06/19/18 11:15 Dose: 133.333 mls/hr Piperacillin Sod/Tazobactam (Sod 3.375 gm/ Sodium Chloride) 100 mls @ 200 mls/hr IVPB Q6H [facility]; Protocol Last Admin: 06/19/18 08:57 Dose: 200 mls/hr Insulin Aspart (Novolog) 0 unit SC ACHS [facility]; Protocol Last Admin: 06/19/18 17:14 Dose: Not Given Insulin Detemir (Levemir) 20 unit SC ACB [facility] Last Admin: 06/19/18 08:38 Dose: 20 units Insulin Detemir (Levemir) 40 unit SC HS [facility] Last Admin: 06/18/18 21:32 Dose: Not Given Metformin HCl (Glucophage) 1,000 mg PO BID [facility] Last Admin: 06/19/18 17:11 Dose: 1,000 mg Methadone HCl (Methadose) 120 mg PO DAILY [facility] Last Admin: 06/19/18 09:55 Dose: 120 mg Methadone HCl (Methadone) 10 mg PO DAILY [facility] Last Admin: 06/19/18 09:55 Dose: 10 mg Mupirocin (Bactroban Ointment) 1 gm TOP DAILY [facility] Last Admin: 06/19/18 10:02 Dose: Not Given Quetiapine Fumarate (Seroquel) 300 mg PO BID [facility] Last Admin: 06/19/18 17:11 Dose: 300 mg Rosuvastatin Calcium (Crestor) 20 mg PO [facility] Last Admin: 06/18/18 21:59 Dose: 20 mg Sertraline HCl (Zoloft) 100 mg PO [facility] Last Admin: 06/18/18 21:59 Dose: 100 mg - Labs Labs: 06/19/18 07:00 06/19/18 07:00 - Constitutional Appears: Well - Head Exam Head Exam: ATRAUMATIC, NORMAL INSPECTION, NORMOCEPHALIC - Eye Exam Eye Exam: EOMI, Normal appearance, PERRL Pupil Exam: NORMAL ACCOMODATION, PERRL - ENT Exam ENT Exam: Mucous Membranes Moist, Normal Exam - Neck Exam Neck Exam: Full ROM, Normal Inspection. absent: Lymphadenopathy - Respiratory Exam Respiratory Exam: Clear to Ausculation Bilateral, NORMAL BREATHING PATTERN - Cardiovascular Exam Cardiovascular Exam: REGULAR RHYTHM, +S1, +S2. absent: Murmur - GI/Abdominal Exam GI & Abdominal Exam: Soft, Normal Bowel Sounds. absent: Tenderness - Rectal Exam Rectal Exam: NORMAL INSPECTION - Exam Exam: Circumcision, NORMAL INSPECTION External exam: NORMAL EXTERNAL EXAM Speculum exam: NORMAL SPECULUM EXAM Bimanual exam: NORMAL BIMANUAL EXAM - Extremities Exam Extremities Exam: Full ROM, Normal Capillary Refill, Normal Inspection. absent: Joint Swelling, Pedal Edema - Back Exam Back Exam: NORMAL INSPECTION - Neurological Exam Neurological Exam: Alert, Awake, CN II-XII Intact, Normal Gait, Oriented x3 - Psychiatric Exam Psychiatric exam: Normal Affect, Normal Mood - Skin Skin Exam: Dry. absent: Intact Additional comments: wound left foot + Assessment and Plan - Assessment and Plan (Free Text) Plan: seen at bedside for f/u left 4th interspace ulcer/osteo. Pt does not want any sx amputation. Pt wants care home Iv abx and YINKA placement. cont iv rx for 6 weeks
[2018-06-20] MEDS: Vancomycin 1 gm/NS 200 ml 1 GM/200 ML BAG IVPB SCH ×3 (00:06→23:59)
[2018-06-20] MEDS: Piperacillin/Tazobact 3.375 GM in Sodium Chloride 100 ML IVPB SCH ×4 (02:04→20:58)
[2018-06-20] MEDS: (Novolog) Insulin Aspart, Recombinant 100 u/ml 10 ml vial SC SCH ×4 (08:30→21:31)
[2018-06-20] MEDS: Insulin Detemir 100 units/ml Vial (Levemir) SC SCH ×2 (08:31→21:29)
[2018-06-20] MEDS: Methadone 40 mg Tab PO SCH (11:16)
[2018-06-20] MEDS: Enoxaparin 40 mg Syringe SC SCH (11:18)
[2018-06-20] MEDS ORDERED: Methadone 40 mg Tab PO SCH ×2 (16:10→17:00)
--- NOTE | 2018-06-20 17:52 | CP.PCM.PN ---
Subjective - Date & Time of Evaluation Date of Evaluation: 06/20/18 Time of Evaluation: 01:35 - Subjective Subjective: Podiatry Progress note: Dr. Crews 52 year old female was seen and evaluated for left foot infected ulcer in the 4th interspace with underlying OM. Patient is AAOx3 and appears in NAD. Denies of any acute pain. Reports that she saw Dr. Moreno yesterday and states that she would like to go with exterminator IV abx as for now. Denies of recent F/N/V/C/SOB/CP/headache. No other pedal complains at this time. Objective - Vital Signs/Intake and Output Vital Signs (last 24 hours): Temp Pulse Resp BP Pulse Ox 98.3 F 92 H 20 124/78 95 06/20/18 16:31 06/20/18 16:31 06/20/18 16:31 06/20/18 16:31 06/20/18 16:31 Intake and Output: 06/20/18 06/20/18 06:59 18:59 Intake Total 950 Output Total 400 Balance 550 - Medications Medications: Current Medications Acetaminophen (Tylenol 325mg Tab) 650 mg PO Q6 PRN PRN Reason: Pain, moderate (4-7) Last Admin: 06/19/18 23:07 Dose: 650 mg Buspirone HCl (Buspar) 10 mg PO TID [facility] Last Admin: 06/20/18 14:10 Dose: 10 mg Enoxaparin Sodium (Lovenox) 40 mg SC DAILY [facility] Last Admin: 06/20/18 11:18 Dose: 40 mg Gemfibrozil (Lopid) 600 mg PO DAILY [facility] Last Admin: 06/20/18 11:17 Dose: 600 mg Hydroxyzine HCl (Atarax) 25 mg PO BID [facility] Last Admin: 06/20/18 17:38 Dose: 25 mg Vancomycin/Sodium Chloride (Vancomycin 1 Gm/Ns 200 Ml) 1 gm in 200 mls @ 133.333 mls/hr IVPB Q12H [facility]; Protocol Stop: 06/22/18 00:01 Last Admin: 06/20/18 12:22 Dose: 133.333 mls/hr Piperacillin Sod/Tazobactam (Sod 3.375 gm/ Sodium Chloride) 100 mls @ 200 mls/hr IVPB Q6H [facility]; Protocol Last Admin: 06/20/18 14:09 Dose: 200 mls/hr Insulin Aspart (Novolog) 0 unit SC ACHS [facility]; Protocol Last Admin: 06/20/18 11:31 Dose: 3 unit Insulin Detemir (Levemir) 20 unit SC ACB [facility] Last Admin: 06/20/18 08:31 Dose: 20 units Insulin Detemir (Levemir) 40 unit SC HS [facility] Last Admin: 06/19/18 21:37 Dose: 40 units Metformin HCl (Glucophage) 1,000 mg PO BID [facility] Last Admin: 06/20/18 17:38 Dose: 1,000 mg Methadone HCl (Methadose) 120 mg PO DAILY [facility] Methadone HCl (Methadone) 10 mg PO DAILY [facility] Mupirocin (Bactroban Ointment) 1 gm TOP DAILY [facility] Last Admin: 06/20/18 11:37 Dose: Not Given Quetiapine Fumarate (Seroquel) 300 mg PO BID [facility] Last Admin: 06/20/18 17:38 Dose: 300 mg Rosuvastatin Calcium (Crestor) 20 mg PO [facility] Last Admin: 06/19/18 21:38 Dose: 20 mg Sertraline HCl (Zoloft) 100 mg PO [facility] Last Admin: 06/19/18 21:38 Dose: 100 mg - Labs Labs: 06/19/18 07:00 06/19/18 07:00 - Constitutional Appears: Well, Non-toxic, No Acute Distress - Head Exam Head Exam: ATRAUMATIC, NORMOCEPHALIC - Extremities Exam Additional comments: L LE focused exam: Vasc: DP/PT 1/4, Cap refill < 3 sec to all digits, Temp gradient warm to cool from proximal to distal. No pitting or non-pitting edema noted. Neuro: Gross sensation intact and protective sensations diminished. Derm: An open linear ulcer at the 4th interspace measures 2cm X 0.6cm X 0.5cm. No malodor, no drainage, Macerated borders, Positive probe to bone, positive undermining, no periwound erythema MSK: Muscle power intact 5/5 to all groups. Pain on palpating the 4th interspace ulcer. - Neurological Exam Neurological Exam: Alert, Awake, Oriented x3 - Psychiatric Exam Psychiatric exam: Normal Affect, Normal Mood Assessment and Plan - Assessment and Plan (Free Text) Assessment: 52 y/o F evaluated for left foot infected ulcer in the 4th interspace with underlying OM Plan: Patient seen and evaluated Plan discussed with Dr. Crews. Charts and vitals reviewed; Afebrile, WBC @ 10.7 ESR: 56; CRP 24.50 X-ray left foot: No signs of soft tissue emphysema, no signs of acute OM MRI performed 06/15/2018; Findings consistent with OM L 4th proximal phalanx Vascular consult - recs appreciated TATA/PVR: final report: No evidence of arterial insufficiency b/l. Wound cx: Coag negative staph Continue IV abx as per JIHAN - VancViolet Wound dressed using Xerform, betadine and DSD. Patient is refusing any form of surgical intervention at this time - Patient will need need intermediate abx; patient may need a PICC line No plan for surgical intervention at this time. Podiatry will follow up the patient while in-house
[2018-06-20] MEDS ORDERED: Dextrose 50% SYRINGE Inj (50 ml) IV STA (22:36)
[2018-06-21] MEDS: Piperacillin/Tazobact 3.375 GM in Sodium Chloride 100 ML IVPB SCH ×3 (02:05→20:10)
[2018-06-21] MEDS: Insulin Detemir 100 units/ml Vial (Levemir) SC SCH (08:35)
[2018-06-21] MEDS: (Novolog) Insulin Aspart, Recombinant 100 u/ml 10 ml vial SC SCH ×3 (08:37→18:03)
[2018-06-21] MEDS: Methadone 40 mg Tab PO SCH (10:20)
[2018-06-21] MEDS: Enoxaparin 40 mg Syringe SC SCH (10:23)
[2018-06-21] MEDS: Vancomycin 1 gm/NS 200 ml 1 GM/200 ML BAG IVPB SCH (12:52)
--- NOTE | 2018-06-21 13:08 | CP.PCM.PN ---
Subjective - Date & Time of Evaluation Date of Evaluation: 06/21/18 Time of Evaluation: 13:05 - Subjective Subjective: Podiatry Progress note: Dr. Crews 52 year old female was seen and evaluated for left foot infected ulcer in the 4th interspace with underlying OM. Patient is AAOx3 and appears in NAD. Patient denies of any acute pain at the ulcer site. Patient denies of overnight F/N/V/C/SOB/CP/headache. She denies an other pedal complains at this time. Objective - Vital Signs/Intake and Output Vital Signs (last 24 hours): Temp Pulse Resp BP Pulse Ox 98.1 F 100 H 20 112/77 96 06/21/18 08:00 06/21/18 08:00 06/21/18 08:00 06/21/18 08:00 06/21/18 08:00 Intake and Output: 06/21/18 06/21/18 06:59 18:59 Intake Total 650 Output Total 600 Balance 50 - Medications Medications: Current Medications Acetaminophen (Tylenol 325mg Tab) 650 mg PO Q6 PRN PRN Reason: Pain, moderate (4-7) Last Admin: 06/21/18 03:25 Dose: 650 mg Buspirone HCl (Buspar) 10 mg PO TID [facility] Last Admin: 06/21/18 10:22 Dose: 10 mg Enoxaparin Sodium (Lovenox) 40 mg SC DAILY [facility] Last Admin: 06/21/18 10:23 Dose: 40 mg Gemfibrozil (Lopid) 600 mg PO DAILY [facility] Last Admin: 06/21/18 10:22 Dose: 600 mg Hydroxyzine HCl (Atarax) 25 mg PO BID [facility] Last Admin: 06/21/18 10:22 Dose: 25 mg Vancomycin/Sodium Chloride (Vancomycin 1 Gm/Ns 200 Ml) 1 gm in 200 mls @ 133.333 mls/hr IVPB Q12H [facility]; Protocol Stop: 06/22/18 00:01 Last Admin: 06/21/18 12:52 Dose: 133.333 mls/hr Piperacillin Sod/Tazobactam (Sod 3.375 gm/ Sodium Chloride) 100 mls @ 200 mls/hr IVPB Q6H [facility]; Protocol Last Admin: 06/21/18 08:38 Dose: 200 mls/hr Insulin Aspart (Novolog) 0 unit SC ACHS [facility]; Protocol Last Admin: 06/21/18 12:52 Dose: 2 unit Insulin Detemir (Levemir) 20 unit SC ACB [facility] Last Admin: 06/21/18 08:35 Dose: 20 units Insulin Detemir (Levemir) 40 unit SC HS [facility] Last Admin: 06/20/18 21:29 Dose: Not Given Metformin HCl (Glucophage) 1,000 mg PO BID [facility] Last Admin: 06/21/18 10:24 Dose: Not Given Methadone HCl (Methadose) 120 mg PO DAILY [facility] Last Admin: 06/21/18 10:20 Dose: 120 mg Methadone HCl (Methadone) 10 mg PO DAILY [facility] Last Admin: 06/21/18 10:22 Dose: 10 mg Mupirocin (Bactroban Ointment) 1 gm TOP DAILY [facility] Last Admin: 06/21/18 10:24 Dose: Not Given Quetiapine Fumarate (Seroquel) 300 mg PO BID [facility] Last Admin: 06/21/18 10:23 Dose: 300 mg Rosuvastatin Calcium (Crestor) 20 mg PO [facility] Last Admin: 06/20/18 21:10 Dose: 20 mg Sertraline HCl (Zoloft) 100 mg PO [facility] Last Admin: 06/20/18 21:10 Dose: 100 mg - Labs Labs: 06/19/18 07:00 06/19/18 07:00 - Constitutional Appears: Well, Non-toxic, No Acute Distress - Head Exam Head Exam: ATRAUMATIC, NORMOCEPHALIC - Extremities Exam Additional comments: L LE focused exam: Vasc: DP/PT 1/4, Cap refill < 3 sec to all digits, Temp gradient warm to cool from proximal to distal. No pitting or non-pitting edema noted. Neuro: Gross sensation intact and protective sensations diminished. Derm: An open linear ulcer at the 4th interspace measures 2cm X 0.6cm X 0.5cm. No malodor, no drainage, Macerated borders, Positive probe to bone, positive undermining, no periwound erythema MSK: Muscle power intact 5/5 to all groups. Pain on palpating the 4th interspace ulcer. - Neurological Exam Neurological Exam: Alert, Awake, Oriented x3 - Psychiatric Exam Psychiatric exam: Normal Affect, Normal Mood Assessment and Plan - Assessment and Plan (Free Text) Assessment: 52 y/o F evaluated for left foot infected ulcer in the 4th interspace with underlying OM Plan: Patient seen and evaluated Plan discussed with Dr. Crews. Charts and vitals reviewed; Afebrile, WBC @ 10.7 (2/8) ESR: 56; CRP 24.50 X-ray left foot: No signs of soft tissue emphysema, no signs of acute OM MRI performed 06/15/2018; Findings consistent with OM L 4th proximal phalanx Vascular consult - recs appreciated TATA/PVR: final report: No evidence of arterial insufficiency b/l. Wound cx: Coag negative staph Continue IV abx as per ID - Vanc, Laylasyn Wound dressed using bactroban and DSD. Patient is refusing any form of surgical intervention at this time - Patient will need need intermediate designer abx; patient may need a PICC line No plan for surgical intervention at this time. Podiatry will follow up the patient while in-house
--- NOTE | 2018-06-21 16:27 | CP.PCM.PN ---
Subjective - Date & Time of Evaluation Date of Evaluation: 06/21/18 Time of Evaluation: 09:00 - Subjective Subjective: refusing amp Objective - Vital Signs/Intake and Output Vital Signs (last 24 hours): Temp Pulse Resp BP Pulse Ox 99.4 F 96 H 20 135/87 94 L 06/21/18 15:00 06/21/18 15:00 06/21/18 15:00 06/21/18 15:00 06/21/18 15:00 Intake and Output: 06/21/18 06/21/18 06:59 18:59 Intake Total 650 500 Output Total 600 Balance 50 500 - Medications Medications: Current Medications Acetaminophen (Tylenol 325mg Tab) 650 mg PO Q6 PRN PRN Reason: Pain, moderate (4-7) Last Admin: 06/21/18 03:25 Dose: 650 mg Buspirone HCl (Buspar) 10 mg PO TID [facility] Last Admin: 06/21/18 14:02 Dose: 10 mg Enoxaparin Sodium (Lovenox) 40 mg SC DAILY [facility] Last Admin: 06/21/18 10:23 Dose: 40 mg Gemfibrozil (Lopid) 600 mg PO DAILY [facility] Last Admin: 06/21/18 10:22 Dose: 600 mg Hydroxyzine HCl (Atarax) 25 mg PO BID [facility] Last Admin: 06/21/18 10:22 Dose: 25 mg Vancomycin/Sodium Chloride (Vancomycin 1 Gm/Ns 200 Ml) 1 gm in 200 mls @ 133.333 mls/hr IVPB Q12H [facility]; Protocol Stop: 06/22/18 00:01 Last Admin: 06/21/18 12:52 Dose: 133.333 mls/hr Piperacillin Sod/Tazobactam (Sod 3.375 gm/ Sodium Chloride) 100 mls @ 200 mls/hr IVPB Q6H [facility]; Protocol Last Admin: 06/21/18 08:38 Dose: 200 mls/hr Insulin Aspart (Novolog) 0 unit SC ACHS [facility]; Protocol Last Admin: 06/21/18 12:52 Dose: 2 unit Insulin Detemir (Levemir) 20 unit SC ACB [facility] Last Admin: 06/21/18 08:35 Dose: 20 units Insulin Detemir (Levemir) 40 unit SC HS [facility] Last Admin: 02/09/19 21:29 Dose: Not Given Metformin HCl (Glucophage) 1,000 mg PO BID [facility] Last Admin: 06/21/18 10:24 Dose: Not Given Methadone HCl (Methadose) 120 mg PO DAILY [facility] Last Admin: 06/21/18 10:20 Dose: 120 mg Methadone HCl (Methadone) 10 mg PO DAILY [facility] Last Admin: 06/21/18 10:22 Dose: 10 mg Mupirocin (Bactroban Ointment) 1 gm TOP DAILY [facility] Last Admin: 06/21/18 10:24 Dose: Not Given Quetiapine Fumarate (Seroquel) 300 mg PO BID [facility] Last Admin: 06/21/18 10:23 Dose: 300 mg Rosuvastatin Calcium (Crestor) 20 mg PO [facility] Last Admin: 06/20/18 21:10 Dose: 20 mg Sertraline HCl (Zoloft) 100 mg PO [facility] Last Admin: 06/20/18 21:10 Dose: 100 mg - Labs Labs: 06/19/18 07:00 06/19/18 07:00 - Constitutional Appears: Non-toxic, Chronically Ill - Head Exam Head Exam: NORMOCEPHALIC - Eye Exam Eye Exam: absent: Scleral icterus - ENT Exam ENT Exam: Mucous Membranes Dry, Normal External Ear Exam - Neck Exam Neck Exam: absent: Lymphadenopathy - Respiratory Exam Respiratory Exam: Decreased Breath Sounds - Cardiovascular Exam Cardiovascular Exam: REGULAR RHYTHM - GI/Abdominal Exam GI & Abdominal Exam: Distended, Soft - Rectal Exam Rectal Exam: Deferred - Exam Exam: NORMAL INSPECTION - Extremities Exam Extremities Exam: absent: Pedal Edema - Back Exam Back Exam: absent: CVA tenderness (L), paraspinal tenderness - Neurological Exam Neurological Exam: Alert, Awake - Psychiatric Exam Psychiatric exam: Depressed Assessment and Plan - Assessment and Plan (Free Text) Assessment: cont iv rx for 6 weeks
[2018-06-22] MEDS: Vancomycin 1 gm/NS 200 ml 1 GM/200 ML BAG IVPB SCH (00:04)
[2018-06-22] MEDS: Piperacill/Tazo 3.375gm in Dex 3.375 GM/50 ML BAG IVPB SCH ×4 (02:50→20:15)
[2018-06-22 07:28] LABS: BASO # 0.1 K/uL (0.0-0.2); BASO % 0.7 % (0.0-2.0); EOS # 0.3 K/uL (0.0-0.7); EOS % 2.9 % (0.0-4.0); HEMOGLOBIN 11.4 g/dL (11.0-16.0); LYMPH # 3.7 K/uL (1.0-4.3); LYMPH % 31.2 % (20.0-40.0); MEAN CELL VOLUME 92.2 fL (81.0-99.0); MEAN CORPUSCULAR HEMOGLOBIN 31.6 pg (27.0-31.0); MEAN CORPUSCULAR HGB CONC 34.3 g/dL (33.0-37.0); MONO # 0.7 K/uL (0.0-0.8); MONO % 6.4 % (0.0-10.0); NEUT # 6.9 K/uL (1.8-7.0); NEUT % 58.8 % (50.0-75.0); NRBC % 0.1 % (0.0-2.0); RBC 3.61 Mil/uL (3.80-5.20); RED CELL DISTRIBUTION WIDTH 13.3 % (11.5-14.5); WHITE BLOOD COUNT 11.7 K/uL (4.8-10.8)
[2018-06-22 07:32] VITALS: RESP 20
[2018-06-22 07:47] LABS: ALB/GLOB RATIO 1.4 (1.0-2.1); ALBUMIN 3.7 g/dL (3.5-5.0); ALT/SGPT 13 U/L (9-52); AST/SGOT 16 U/L (14-36); BLOOD UREA NITROGEN 13 mg/dL (7-17); CALCIUM 8.9 mg/dl (8.6-10.4); GFR NON-AFRICAN AMERICAN > 60
[2018-06-22] MEDS: Insulin Detemir 100 units/ml Vial (Levemir) SC SCH ×2 (08:00→21:36)
[2018-06-22] MEDS: (Novolog) Insulin Aspart, Recombinant 100 u/ml 10 ml vial SC SCH ×4 (08:31→21:37)
[2018-06-22] MEDS: Methadone 40 mg Tab PO SCH (10:14)
--- NOTE | 2018-06-22 10:15 | CP.PCM.PN ---
Subjective - Date & Time of Evaluation Date of Evaluation: 06/22/18 Time of Evaluation: 10:12 - Subjective Subjective: Podiatry Progress note: Dr. Crews 52 year old female was seen and evaluated for left foot infected ulcer in the 4th interspace with underlying OM. Patient is AAOx3 and appears in NAD. Patient denies of any acute pain at the ulcer site. Patient denies of overnight F/N/V/C/SOB/CP/headache. She denies an other pedal complains at this time. Objective - Vital Signs/Intake and Output Vital Signs (last 24 hours): Temp Pulse Resp BP Pulse Ox 98.1 F 89 20 140/89 96 06/22/18 07:30 06/22/18 07:30 06/22/18 07:30 06/22/18 07:30 06/22/18 07:30 Intake and Output: 06/22/18 06/22/18 06:59 18:59 Intake Total 1100 Output Total 500 Balance 600 - Medications Medications: Current Medications Acetaminophen (Tylenol 325mg Tab) 650 mg PO Q6 PRN PRN Reason: Pain, moderate (4-7) Last Admin: 06/21/18 03:25 Dose: 650 mg Buspirone HCl (Buspar) 10 mg PO TID [facility] Last Admin: 06/21/18 17:59 Dose: 10 mg Enoxaparin Sodium (Lovenox) 40 mg SC DAILY [facility] Last Admin: 06/21/18 10:23 Dose: 40 mg Gemfibrozil (Lopid) 600 mg PO DAILY [facility] Last Admin: 06/21/18 10:22 Dose: 600 mg Hydroxyzine HCl (Atarax) 25 mg PO BID [facility] Last Admin: 06/21/18 17:59 Dose: 25 mg Piperacillin Sod/Tazobactam Sod (Zosyn 3.375 Gm Iv Premix) 3.375 gm in 50 mls @ 100 mls/hr IVPB Q6H [facility]; Protocol Last Admin: 06/22/18 08:34 Dose: 100 mls/hr Insulin Aspart (Novolog) 0 unit SC ACHS [facility]; Protocol Last Admin: 06/22/18 08:31 Dose: 1 unit Insulin Detemir (Levemir) 20 unit SC ACB [facility] Last Admin: 06/21/18 08:35 Dose: 20 units Insulin Detemir (Levemir) 40 unit SC [facility] Last Admin: 06/20/18 21:29 Dose: Not Given Metformin HCl (Glucophage) 1,000 mg PO BID [facility] Last Admin: 06/21/18 17:59 Dose: Not Given Methadone HCl (Methadose) 120 mg PO DAILY [facility] Last Admin: 06/21/18 10:20 Dose: 120 mg Methadone HCl (Methadone) 10 mg PO DAILY [facility] Last Admin: 06/21/18 10:22 Dose: 10 mg Mupirocin (Bactroban Ointment) 1 gm TOP DAILY [facility] Last Admin: 06/21/18 10:24 Dose: Not Given Quetiapine Fumarate (Seroquel) 300 mg PO BID [facility] Last Admin: 06/21/18 17:58 Dose: 300 mg Rosuvastatin Calcium (Crestor) 20 mg PO [facility] Last Admin: 06/21/18 21:37 Dose: 20 mg Sertraline HCl (Zoloft) 100 mg PO [facility] Last Admin: 06/20/18 21:10 Dose: 100 mg - Labs Labs: 06/22/18 07:04 06/22/18 07:04 - Constitutional Appears: Well, Non-toxic, No Acute Distress - Extremities Exam Additional comments: L LE focused exam: Vasc: DP/PT 1/4, Cap refill < 3 sec to all digits, Temp gradient warm to cool from proximal to distal. No pitting or non-pitting edema noted. Neuro: Gross sensation intact and protective sensations diminished. Derm: An open linear ulcer at the 4th interspace measures 2cm X 0.6cm X 0.5cm. No malodor, no drainage, Macerated borders, Positive probe to bone, positive undermining, no periwound erythema MSK: Muscle power intact 5/5 to all groups. Pain on palpating the 4th interspace ulcer. - Neurological Exam Neurological Exam: Alert, Awake, Oriented x3 - Psychiatric Exam Psychiatric exam: Normal Affect, Normal Mood Assessment and Plan - Assessment and Plan (Free Text) Assessment: 52 y/o F evaluated for left foot infected ulcer in the 4th interspace with underlying OM Plan: Patient seen and evaluated Plan discussed with Dr. Crews. Charts and vitals reviewed; Afebrile, WBC @ 11.7 ESR: 56; CRP 24.50 X-ray left foot: No signs of soft tissue emphysema, no signs of acute OM MRI performed 06/15/2018; Findings consistent with OM L 4th proximal phalanx Vascular consult - recs appreciated TATA/PVR: final report: No evidence of arterial insufficiency b/l. Wound cx: Coag negative staph Continue IV abx as per JIHAN - Violet Wound dressed using bactroban and DSD. Patient is refusing any form of surgical intervention at this time - Patient will need need nursing home abx; patient may need a PICC line - PICC in place No plan for surgical intervention at this time. Stable from podiatry standpoint at this time Podiatry will follow up the patient while in-house
[2018-06-22] MEDS: Enoxaparin 40 mg Syringe SC SCH (10:41)
--- NOTE | 2018-06-22 11:01 | CP.PCM.PN ---
Subjective - Date & Time of Evaluation Date of Evaluation: 06/22/18 Time of Evaluation: 11:00 - Subjective Subjective: Progress note. Attending: Dr. Shi. Pt seen and examined at bedside. No acute distress. No events overnight. Some mild pain in the foot. No sx scheduled at this time. Objective - Vital Signs/Intake and Output Vital Signs (last 24 hours): Temp Pulse Resp BP Pulse Ox 98.1 F 89 20 140/89 96 06/22/18 07:30 06/22/18 07:30 06/22/18 07:30 06/22/18 07:30 06/22/18 07:30 Intake and Output: 06/22/18 06/22/18 06:59 18:59 Intake Total 1100 Output Total 500 Balance 600 - Medications Medications: Current Medications Acetaminophen (Tylenol 325mg Tab) 650 mg PO Q6 PRN PRN Reason: Pain, moderate (4-7) Last Admin: 06/21/18 03:25 Dose: 650 mg Buspirone HCl (Buspar) 10 mg PO TID [facility] Last Admin: 06/22/18 10:48 Dose: 10 mg Enoxaparin Sodium (Lovenox) 40 mg SC DAILY [facility] Last Admin: 06/22/18 10:41 Dose: 40 mg Gemfibrozil (Lopid) 600 mg PO DAILY [facility] Last Admin: 06/22/18 10:14 Dose: 600 mg Hydroxyzine HCl (Atarax) 25 mg PO BID [facility] Last Admin: 06/22/18 10:15 Dose: 25 mg Piperacillin Sod/Tazobactam Sod (Zosyn 3.375 Gm Iv Premix) 3.375 gm in 50 mls @ 100 mls/hr IVPB Q6H [facility]; Protocol Last Admin: 06/22/18 08:34 Dose: 100 mls/hr Insulin Aspart (Novolog) 0 unit SC ACHS [facility]; Protocol Last Admin: 06/22/18 08:31 Dose: 1 unit Insulin Detemir (Levemir) 20 unit SC ACB [facility] Last Admin: 06/22/18 08:00 Dose: 20 units Insulin Detemir (Levemir) 40 unit SC HS [facility] Last Admin: 06/20/18 21:29 Dose: Not Given Metformin HCl (Glucophage) 1,000 mg PO BID [facility] Last Admin: 06/22/18 10:14 Dose: 1,000 mg Methadone HCl (Methadose) 120 mg PO DAILY [facility] Last Admin: 06/22/18 10:14 Dose: 120 mg Methadone HCl (Methadone) 10 mg PO DAILY [facility] Last Admin: 06/22/18 10:16 Dose: 10 mg Mupirocin (Bactroban Ointment) 1 gm TOP DAILY [facility] Last Admin: 06/22/18 10:17 Dose: 1 applic Quetiapine Fumarate (Seroquel) 300 mg PO BID [facility] Last Admin: 06/22/18 10:39 Dose: 300 mg Rosuvastatin Calcium (Crestor) 20 mg PO [facility] Last Admin: 06/21/18 21:37 Dose: 20 mg Sertraline HCl (Zoloft) 100 mg PO [facility] Last Admin: 06/20/18 21:10 Dose: 100 mg - Labs Labs: 06/22/18 07:04 06/22/18 07:04 - Constitutional Appears: Non-toxic, No Acute Distress - Head Exam Head Exam: ATRAUMATIC, NORMAL INSPECTION, NORMOCEPHALIC - Eye Exam Eye Exam: EOMI - ENT Exam ENT Exam: Mucous Membranes Moist - Neck Exam Neck Exam: Full ROM, Normal Inspection - Respiratory Exam Respiratory Exam: NORMAL BREATHING PATTERN. absent: Respiratory Distress - Cardiovascular Exam Cardiovascular Exam: +S1, +S2 - GI/Abdominal Exam GI & Abdominal Exam: Soft, Normal Bowel Sounds. absent: Tenderness - Extremities Exam Extremities Exam: absent: Full ROM, Normal Inspection Additional comments: dressing applied to left foot, no drainage, clean, dry, intact. - Back Exam Back Exam: NORMAL INSPECTION - Neurological Exam Neurological Exam: Alert, Awake, Oriented x3 - Psychiatric Exam Psychiatric exam: Normal Affect, Normal Mood - Skin Skin Exam: Dry, Intact, Normal Color, Warm Assessment and Plan - Assessment and Plan (Free Text) Assessment: This is a 52 yo female with Osteomyelitis Left 4th Proximal Phalanx Podiatry consulted, help appreciated Vascular surgery consulted, help appreciated- no intervention at this time ID, Dr. Moreno consulted, help appreciated Left foot xray: soft tissue swelling, no discrete osseous erosive changes appreciated. PVR/ SEG LE: no evidence of hemodynamically significant arterial insufficiency blood culture: no growth after 24 hours wound culture: coag neg staph ESR: 56; CRP 24.50 picc line to be placed >>>> has been placed meds: Zosyn 3.375gm ivpb q6 Mupirocin 2% -per Dr. Moreno, patient is to remain on IV zosyn q 6 hrs for SIX weeks DMII Gemfibrozil 600mg po daily Metformin 1000mg po BID Levemir 40 u sc HS Levemir 20 u sc ACB ISS- medium achs HgA1C: 7.2 HLD continue Rosuvastatin 20 mg PO HS triglycerides: 208, cholesterol 158, LDL 95, HDL 32 Anxiety/ Depression continue buspirone 10mg po TID hydroxyzine 25 mg po BID Seroquel 300mg po BID Zoloft 100mg po HS Hx Heroin Abuse Methadone 130mg po daily GI/DVT ppx Lovenox 40mg sc daily no GI ppx indicated Dispo: patient has PICC line in place. She is medically stable for discharge to [facility] as she is not able to be discharged home with PICC due to history of drug abuse. Will discuss dc planning with RADHA. Plan for IV zosyn for six weeks.
--- NOTE | 2018-06-22 12:18 | CP.PCM.PN ---
Subjective - Date & Time of Evaluation Date of Evaluation: 06/22/18 Time of Evaluation: 07:00 - Subjective Subjective: iv rx renewed Objective - Vital Signs/Intake and Output Vital Signs (last 24 hours): Temp Pulse Resp BP Pulse Ox 98.1 F 89 20 140/89 96 06/22/18 07:30 06/22/18 07:30 06/22/18 07:30 06/22/18 07:30 06/22/18 07:30 Intake and Output: 06/22/18 06/22/18 06:59 18:59 Intake Total 1100 Output Total 500 Balance 600 - Medications Medications: Current Medications Acetaminophen (Tylenol 325mg Tab) 650 mg PO Q6 PRN PRN Reason: Pain, moderate (4-7) Last Admin: 06/21/18 03:25 Dose: 650 mg Buspirone HCl (Buspar) 10 mg PO TID [facility] Last Admin: 06/22/18 10:48 Dose: 10 mg Enoxaparin Sodium (Lovenox) 40 mg SC DAILY [facility] Last Admin: 06/22/18 10:41 Dose: 40 mg Gemfibrozil (Lopid) 600 mg PO DAILY [facility] Last Admin: 06/22/18 10:14 Dose: 600 mg Hydroxyzine HCl (Atarax) 25 mg PO BID [facility] Last Admin: 06/22/18 10:15 Dose: 25 mg Piperacillin Sod/Tazobactam Sod (Zosyn 3.375 Gm Iv Premix) 3.375 gm in 50 mls @ 100 mls/hr IVPB Q6H [facility]; Protocol Last Admin: 06/22/18 08:34 Dose: 100 mls/hr Insulin Aspart (Novolog) 0 unit SC ACHS [facility]; Protocol Last Admin: 06/22/18 12:04 Dose: 4 unit Insulin Detemir (Levemir) 20 unit SC ACB [facility] Last Admin: 06/22/18 08:00 Dose: 20 units Insulin Detemir (Levemir) 40 unit SC HS [facility] Last Admin: 06/20/18 21:29 Dose: Not Given Metformin HCl (Glucophage) 1,000 mg PO BID [facility] Last Admin: 06/22/18 10:14 Dose: 1,000 mg Methadone HCl (Methadose) 120 mg PO DAILY [facility] Last Admin: 06/22/18 10:14 Dose: 120 mg Methadone HCl (Methadone) 10 mg PO DAILY [facility] Last Admin: 06/22/18 10:16 Dose: 10 mg Mupirocin (Bactroban Ointment) 1 gm TOP DAILY [facility] Last Admin: 06/22/18 10:17 Dose: 1 applic Quetiapine Fumarate (Seroquel) 300 mg PO BID [facility] Last Admin: 06/22/18 10:39 Dose: 300 mg Rosuvastatin Calcium (Crestor) 20 mg PO [facility] Last Admin: 06/21/18 21:37 Dose: 20 mg Sertraline HCl (Zoloft) 100 mg PO [facility] Last Admin: 06/20/18 21:10 Dose: 100 mg - Labs Labs: 06/22/18 07:04 06/22/18 07:04 - Constitutional Appears: Non-toxic, Chronically Ill - Head Exam Head Exam: NORMOCEPHALIC - Eye Exam Eye Exam: absent: Scleral icterus - ENT Exam ENT Exam: Mucous Membranes Dry - Neck Exam Neck Exam: absent: Lymphadenopathy - Respiratory Exam Respiratory Exam: Decreased Breath Sounds - Cardiovascular Exam Cardiovascular Exam: REGULAR RHYTHM - GI/Abdominal Exam GI & Abdominal Exam: Distended, Soft Assessment and Plan - Assessment and Plan (Free Text) Assessment: cont rx OM
[2018-06-22 15:52] VITALS: O2SAT 95
[2018-06-23] MEDS: Piperacill/Tazo 3.375gm in Dex 3.375 GM/50 ML BAG IVPB SCH ×3 (02:49→14:10)
[2018-06-23 07:36] LABS: BASO # 0.1 K/uL (0.0-0.2); BASO % 0.8 % (0.0-2.0); EOS # 0.3 K/uL (0.0-0.7); EOS % 2.8 % (0.0-4.0); HEMOGLOBIN 11.7 g/dL (11.0-16.0); LYMPH # 3.9 K/uL (1.0-4.3); LYMPH % 35.3 % (20.0-40.0); MEAN CELL VOLUME 92.2 fL (81.0-99.0); MEAN CORPUSCULAR HEMOGLOBIN 31.6 pg (27.0-31.0); MEAN CORPUSCULAR HGB CONC 34.2 g/dL (33.0-37.0); MEAN PLATELET VOLUME 9.1 fL (7.2-11.7); MONO # 0.7 K/uL (0.0-0.8); MONO % 6.4 % (0.0-10.0); NEUT # 6.1 K/uL (1.8-7.0); NEUT % 54.7 % (50.0-75.0); NRBC % 0.1 % (0.0-2.0); RBC 3.72 Mil/uL (3.80-5.20); RED CELL DISTRIBUTION WIDTH 13.2 % (11.5-14.5); WHITE BLOOD COUNT 11.1 K/uL (4.8-10.8)
[2018-06-23 07:42] LABS: ALB/GLOB RATIO 1.4 (1.0-2.1); ALBUMIN 3.9 g/dL (3.5-5.0); ALT/SGPT 11 U/L (9-52); AST/SGOT 19 U/L (14-36); BLOOD UREA NITROGEN 11 mg/dL (7-17); CALCIUM 9.2 mg/dl (8.6-10.4); GFR NON-AFRICAN AMERICAN > 60
[2018-06-23] MEDS: Insulin Detemir 100 units/ml Vial (Levemir) SC SCH (08:14)
[2018-06-23] MEDS: (Novolog) Insulin Aspart, Recombinant 100 u/ml 10 ml vial SC SCH ×4 (08:14→17:44)
[2018-06-23] MEDS: Methadone 40 mg Tab PO SCH (09:40)
[2018-06-23] MEDS: Enoxaparin 40 mg Syringe SC SCH (09:44)
--- NOTE | 2018-06-23 11:45 | CP.PCM.PN ---
Subjective - Date & Time of Evaluation Date of Evaluation: 06/23/18 Time of Evaluation: 11:43 - Subjective Subjective: Podiatry Progress note: Dr. Crews 52 year old female was seen and evaluated for left foot infected ulcer in the 4th interspace with underlying OM. Patient is AAOx3 and appears in NAD. Patient denies of any acute pain at the ulcer site. Patient denies of overnight F/N/V/C/SOB/CP/headache. She denies an other pedal complains at this time. Objective - Vital Signs/Intake and Output Vital Signs (last 24 hours): Temp Pulse Resp BP Pulse Ox 97.8 F 79 20 123/80 95 06/23/18 08:12 06/23/18 08:12 06/23/18 08:12 06/23/18 08:12 06/23/18 08:12 Intake and Output: 06/23/18 06/23/18 06:59 18:59 Intake Total 600 Balance 600 - Medications Medications: Current Medications Acetaminophen (Tylenol 325mg Tab) 650 mg PO Q6 PRN PRN Reason: Pain, moderate (4-7) Last Admin: 06/22/18 14:16 Dose: 650 mg Buspirone HCl (Buspar) 10 mg PO TID [facility] Last Admin: 06/23/18 09:43 Dose: 10 mg Enoxaparin Sodium (Lovenox) 40 mg SC DAILY [facility] Last Admin: 06/23/18 09:44 Dose: 40 mg Gemfibrozil (Lopid) 600 mg PO DAILY [facility] Last Admin: 06/23/18 09:42 Dose: 600 mg Hydroxyzine HCl (Atarax) 25 mg PO BID [facility] Last Admin: 06/22/18 18:36 Dose: 25 mg Piperacillin Sod/Tazobactam Sod (Zosyn 3.375 Gm Iv Premix) 3.375 gm in 50 mls @ 100 mls/hr IVPB Q6H [facility]; Protocol Last Admin: 06/23/18 08:13 Dose: 100 mls/hr Insulin Aspart (Novolog) 0 unit SC ACHS [facility]; Protocol Last Admin: 06/23/18 08:14 Dose: 2 unit Insulin Detemir (Levemir) 20 unit SC ACB [facility] Last Admin: 06/23/18 08:14 Dose: 20 units Insulin Detemir (Levemir) 40 unit SC HS [facility] Last Admin: 06/22/18 21:36 Dose: 40 units Metformin HCl (Glucophage) 1,000 mg PO BID [facility] Last Admin: 06/23/18 09:43 Dose: 1,000 mg Methadone HCl (Methadose) 120 mg PO DAILY [facility] Last Admin: 06/23/18 09:40 Dose: 120 mg Methadone HCl (Methadone) 10 mg PO DAILY [facility] Last Admin: 06/23/18 09:42 Dose: 10 mg Mupirocin (Bactroban Ointment) 1 gm TOP DAILY [facility] Last Admin: 06/22/18 10:17 Dose: 1 applic Quetiapine Fumarate (Seroquel) 300 mg PO BID [facility] Last Admin: 06/23/18 09:43 Dose: 300 mg Rosuvastatin Calcium (Crestor) 20 mg PO [facility] Last Admin: 06/22/18 21:34 Dose: 20 mg Sertraline HCl (Zoloft) 100 mg PO [facility] Last Admin: 06/22/18 21:35 Dose: 100 mg - Labs Labs: 06/23/18 07:15 06/23/18 07:15 - Constitutional Appears: Well, Non-toxic, No Acute Distress - Head Exam Head Exam: ATRAUMATIC, NORMOCEPHALIC - Extremities Exam Additional comments: L LE focused exam: Vasc: DP/PT 1/4, Cap refill < 3 sec to all digits, Temp gradient warm to cool from proximal to distal. No pitting or non-pitting edema noted. Neuro: Gross sensation intact and protective sensations diminished. Derm: An open linear ulcer at the 4th interspace measures 1.3cm X 0.4cm X 0.5cm (Ulcer is improving). No malodor, no drainage, Macerated borders, Positive probe to bone, positive undermining, no periwound erythema MSK: Muscle power intact 5/5 to all groups. Pain on palpating the 4th interspace ulcer. - Neurological Exam Neurological Exam: Alert, Awake, Oriented x3 - Psychiatric Exam Psychiatric exam: Normal Affect, Normal Mood Assessment and Plan - Assessment and Plan (Free Text) Assessment: 52 y/o F evaluated for left foot infected ulcer in the 4th interspace with underlying OM Plan: Patient seen and evaluated Plan discussed with Dr. Crews. Charts and vitals reviewed; Afebrile, WBC @ 11.1 ESR: 56; CRP 24.50 X-ray left foot: No signs of soft tissue emphysema, no signs of acute OM MRI performed 06/15/2018; Findings consistent with OM L 4th proximal phalanx Vascular consult - recs appreciated TATA/PVR: final report: No evidence of arterial insufficiency b/l. Wound cx: Coag negative staph Continue IV abx as per JIHAN - Violet Wound dressed using bactroban and DSD. Patient is refusing any form of surgical intervention at this time - Patient will need need [facility] abx; patient may need a PICC line - PICC in place No plan for surgical intervention at this time. Stable from podiatry standpoint at this time Podiatry will follow up the patient while in-house
--- NOTE | 2018-06-23 14:38 | CP.PCM.PN ---
Subjective - Date & Time of Evaluation Date of Evaluation: 06/23/18 Time of Evaluation: 14:35 - Subjective Subjective: Progress note. Attending: Dr. Shi. Patient seen and examined at bedside. No acute distress. patient will need 6 weeks of IV abx. ID following, pending placement. Pain is less, no fevers, chills, vomiting, diarrhea. Objective - Vital Signs/Intake and Output Vital Signs (last 24 hours): Temp Pulse Resp BP Pulse Ox 97.8 F 79 20 123/80 95 06/23/18 08:12 06/23/18 08:12 06/23/18 08:12 06/23/18 08:12 06/23/18 08:12 Intake and Output: 06/23/18 06/23/18 06:59 18:59 Intake Total 600 Balance 600 - Medications Medications: Current Medications Acetaminophen (Tylenol 325mg Tab) 650 mg PO Q6 PRN PRN Reason: Pain, moderate (4-7) Last Admin: 06/22/18 14:16 Dose: 650 mg Buspirone HCl (Buspar) 10 mg PO TID [facility] Last Admin: 06/23/18 13:48 Dose: 10 mg Enoxaparin Sodium (Lovenox) 40 mg SC DAILY [facility] Last Admin: 06/23/18 09:44 Dose: 40 mg Gemfibrozil (Lopid) 600 mg PO DAILY [facility] Last Admin: 06/23/18 09:42 Dose: 600 mg Hydroxyzine HCl (Atarax) 25 mg PO BID [facility] Last Admin: 06/22/18 18:36 Dose: 25 mg Piperacillin Sod/Tazobactam Sod (Zosyn 3.375 Gm Iv Premix) 3.375 gm in 50 mls @ 100 mls/hr IVPB Q6H [facility]; Protocol Last Admin: 06/23/18 14:10 Dose: 100 mls/hr Insulin Aspart (Novolog) 0 unit SC ACHS [facility]; Protocol Last Admin: 06/23/18 11:49 Dose: 4 unit Insulin Detemir (Levemir) 20 unit SC ACB [facility] Last Admin: 06/23/18 08:14 Dose: 20 units Insulin Detemir (Levemir) 40 unit SC HS [facility] Last Admin: 06/22/18 21:36 Dose: 40 units Metformin HCl (Glucophage) 1,000 mg PO BID [facility] Last Admin: 06/23/18 09:43 Dose: 1,000 mg Methadone HCl (Methadose) 120 mg PO DAILY [facility] Last Admin: 06/23/18 09:40 Dose: 120 mg Methadone HCl (Methadone) 10 mg PO DAILY [facility] Last Admin: 06/23/18 09:42 Dose: 10 mg Mupirocin (Bactroban Ointment) 1 gm TOP DAILY [facility] Last Admin: 06/23/18 11:53 Dose: Not Given Quetiapine Fumarate (Seroquel) 300 mg PO BID [facility] Last Admin: 06/23/18 09:43 Dose: 300 mg Rosuvastatin Calcium (Crestor) 20 mg PO [facility] Last Admin: 06/22/18 21:34 Dose: 20 mg Sertraline HCl (Zoloft) 100 mg PO [facility] Last Admin: 06/22/18 21:35 Dose: 100 mg - Labs Labs: 06/23/18 07:15 06/23/18 07:15 - Constitutional Appears: Non-toxic, No Acute Distress - Head Exam Head Exam: ATRAUMATIC, NORMAL INSPECTION, NORMOCEPHALIC - ENT Exam ENT Exam: Mucous Membranes Moist - Respiratory Exam Respiratory Exam: Wheezes. absent: Respiratory Distress - Cardiovascular Exam Cardiovascular Exam: +S1, +S2 - GI/Abdominal Exam GI & Abdominal Exam: Soft, Normal Bowel Sounds. absent: Tenderness - Extremities Exam Extremities Exam: absent: Full ROM, Normal Inspection Additional comments: dressing left foot clean, dry, intact. - Back Exam Back Exam: NORMAL INSPECTION - Neurological Exam Neurological Exam: Alert, Awake, CN II-XII Intact, Oriented x3 - Psychiatric Exam Psychiatric exam: Normal Affect, Normal Mood - Skin Skin Exam: Dry, Intact, Normal Color, Warm Assessment and Plan - Assessment and Plan (Free Text) Assessment: This is a 52 yo female with Osteomyelitis Left 4th Proximal Phalanx Podiatry consulted, help appreciated Vascular surgery consulted, help appreciated- no intervention at this time ID, Dr. Moreno consulted, help appreciated Left foot xray: soft tissue swelling, no discrete osseous erosive changes appreciated. PVR/ SEG LE: no evidence of hemodynamically significant arterial insufficiency blood culture: no growth after 24 hours wound culture: coag neg staph ESR: 56; CRP 24.50 picc line to be placed >>>> has been placed meds: Zosyn 3.375gm ivpb q6 Mupirocin 2% -per Dr. Moreno, patient is to remain on IV zosyn q 6 hrs for SIX weeks DMII Gemfibrozil 600mg po daily Metformin 1000mg po BID Levemir 40 u sc HS Levemir 20 u sc ACB ISS- medium achs HgA1C: 7.2 HLD continue Rosuvastatin 20 mg PO HS triglycerides: 208, cholesterol 158, LDL 95, HDL 32 Anxiety/ Depression continue buspirone 10mg po TID hydroxyzine 25 mg po BID Seroquel 300mg po BID Zoloft 100mg po HS Hx Heroin Abuse Methadone 130 mg po daily GI/DVT ppx Lovenox 40mg sc daily no GI ppx indicated Dispo: patient has PICC line in place. She is medically stable for discharge to [facility] as she is not able to be discharged home with PICC due to history of drug abuse. Will discuss dc planning with RADHA. Plan for IV zosyn for six weeks.
[2018-06-23 16:23] VITALS: BP 110/72; PULSE 102; TEMP 97.9
--- NOTE | 2018-06-23 16:59 | CP.PCM.PN ---
Subjective - Date & Time of Evaluation Date of Evaluation: 06/23/18 Time of Evaluation: 10:00 - Subjective Subjective: improving nad Objective - Vital Signs/Intake and Output Vital Signs (last 24 hours): Temp Pulse Resp BP Pulse Ox 97.9 F 102 H 20 110/72 95 06/23/18 16:00 06/23/18 16:00 06/23/18 16:00 06/23/18 16:00 06/23/18 16:00 Intake and Output: 06/23/18 06/23/18 06:59 18:59 Intake Total 600 Balance 600 - Medications Medications: Current Medications Acetaminophen (Tylenol 325mg Tab) 650 mg PO Q6 PRN PRN Reason: Pain, moderate (4-7) Last Admin: 06/22/18 14:16 Dose: 650 mg Buspirone HCl (Buspar) 10 mg PO TID [facility] Last Admin: 06/23/18 13:48 Dose: 10 mg Enoxaparin Sodium (Lovenox) 40 mg SC DAILY [facility] Last Admin: 06/23/18 09:44 Dose: 40 mg Gemfibrozil (Lopid) 600 mg PO DAILY [facility] Last Admin: 06/23/18 09:42 Dose: 600 mg Hydroxyzine HCl (Atarax) 25 mg PO BID [facility] Last Admin: 06/23/18 10:00 Dose: 25 mg Piperacillin Sod/Tazobactam Sod (Zosyn 3.375 Gm Iv Premix) 3.375 gm in 50 mls @ 100 mls/hr IVPB Q6H [facility]; Protocol Last Admin: 06/23/18 14:10 Dose: 100 mls/hr Insulin Aspart (Novolog) 0 unit SC ACHS [facility]; Protocol Last Admin: 06/23/18 11:49 Dose: 4 unit Insulin Detemir (Levemir) 20 unit SC ACB [facility] Last Admin: 06/23/18 08:14 Dose: 20 units Insulin Detemir (Levemir) 40 unit SC HS [facility] Last Admin: 06/22/18 21:36 Dose: 40 units Metformin HCl (Glucophage) 1,000 mg PO BID [facility] Last Admin: 06/23/18 09:43 Dose: 1,000 mg Methadone HCl (Methadose) 120 mg PO DAILY [facility] Last Admin: 06/23/18 09:40 Dose: 120 mg Methadone HCl (Methadone) 10 mg PO DAILY [facility] Last Admin: 06/23/18 09:42 Dose: 10 mg Mupirocin (Bactroban Ointment) 1 gm TOP DAILY [facility] Last Admin: 06/23/18 11:53 Dose: Not Given Quetiapine Fumarate (Seroquel) 300 mg PO BID [facility] Last Admin: 06/23/18 09:43 Dose: 300 mg Rosuvastatin Calcium (Crestor) 20 mg PO [facility] Last Admin: 06/22/18 21:34 Dose: 20 mg Sertraline HCl (Zoloft) 100 mg PO [facility] Last Admin: 06/22/18 21:35 Dose: 100 mg - Labs Labs: 06/23/18 07:15 06/23/18 07:15 - Constitutional Appears: Well - Head Exam Head Exam: ATRAUMATIC, NORMAL INSPECTION, NORMOCEPHALIC - Eye Exam Eye Exam: EOMI, Normal appearance, PERRL Pupil Exam: NORMAL ACCOMODATION, PERRL - ENT Exam ENT Exam: Mucous Membranes Moist, Normal Exam - Neck Exam Neck Exam: Full ROM, Normal Inspection. absent: Lymphadenopathy - Respiratory Exam Respiratory Exam: Clear to Ausculation Bilateral, NORMAL BREATHING PATTERN - Cardiovascular Exam Cardiovascular Exam: REGULAR RHYTHM, +S1, +S2. absent: Murmur - GI/Abdominal Exam GI & Abdominal Exam: Soft, Normal Bowel Sounds. absent: Tenderness - Rectal Exam Rectal Exam: Deferred - Exam Exam: NORMAL INSPECTION - Extremities Exam Extremities Exam: Full ROM, Normal Capillary Refill, Normal Inspection. absent: Joint Swelling, Pedal Edema - Back Exam Back Exam: NORMAL INSPECTION - Neurological Exam Neurological Exam: Alert, Awake, CN II-XII Intact, Normal Gait, Oriented x3 - Psychiatric Exam Psychiatric exam: Normal Affect, Normal Mood - Skin Skin Exam: Dry, Intact, Normal Color, Warm Assessment and Plan - Assessment and Plan (Free Text) Assessment: cont rx OM x 6 weeks weekly labs creat vanco levels follow up podiatry
--- NOTE | 2018-07-02 06:20 | DS ---
HISTORY OF PRESENT ILLNESS AND HOSPITAL COURSE: Ms. Childers was admitted to the hospital with diabetic foot infection. Started on IV antibiotics. Also had a podiatry consult. IV antibiotics was required. The patient had a PICC line. The patient was transferred to rehab for further IV antibiotics. DIAGNOSES: Osteomyelitis of foot, diabetic foot. Obie Shi MD
== END 2018-06-23 20:22 | DRG 566 ==
LOC: C.ER 13:12 → C.9E 15:13 → C.3T 16:02
PROVIDERS: ADMIT Internal Medicine Pulmonary Disease; ATTEND Internal Medicine Pulmonary Disease
PROC: 02H633Z Insertion of Infusion Device into Right Atrium, Percutaneous Approach (ICD-10-PCS; principal; 2018-06-18)
DX: E11.621 Type 2 diabetes mellitus with foot ulcer (principal); M86.172 Other acute osteomyelitis, left ankle and foot; L97.529 Non-pressure chronic ulcer of other part of left foot with unspecified severity; F11.10 Opioid abuse, uncomplicated; E11.69 Type 2 diabetes mellitus with other specified complication; E78.5 Hyperlipidemia, unspecified; F17.210 Nicotine dependence, cigarettes, uncomplicated; F32.9 Major depressive disorder, single episode, unspecified; F41.9 Anxiety disorder, unspecified; Z79.4 Long term (current) use of insulin